=== PATIENT | female | born 1940 | race Caucasian/White ===

== ENCOUNTER → 2016-09-10 | Outpatient (CLI) | payer MEDICARE ==
[~2016-09-10] MED LIST: ASCO-297 PO; BUME1TAB PO; CHOL400T10 PO; FERR1TAB25 PO; FISH1CAP17 PO; FOLI-40 PO; LEFL20TA11 PO; METH2.5T33 PO; PRED-219 PO; [UNRECOGNIZED DRUG - CODE] PO
--- NOTE | 2016-09-10 13:37 | DI ---
Indication: ITS.REASON: R09.89 CAROTID BRUIT; R01.2; R01.1 HEART MURMUR US CAROTID DOPP COMPLETE: TECHNIQUE: Grayscale, color and duplex Doppler imaging was performed of the carotid systems bilaterally. RIGHT: PSV ICA 141 PDV ICA 15 PSV CCA 66 PDV CCA 15 SVR 2.1 PSV ECA 94 ICA Diameter reduction 50%-70% (1.8-2.0)% LEFT: PSV ICA 84 PDV ICA 19 PSV CCA 71 PDV CCA 16 SVR 1.2 PSV ECA 115 ICA Diameter reduction 20%-40% (1.2-1.4 [id number])% The right vertebral artery is patent with cephalic flow. The left vertebral artery is patent with cephalic flow. IMPRESSION:Patient showed mild bilateral plaque in the bulbs extending into the proximal ICAs however, this did not result in significant stenosis or occlusions. Antegrade flow seen in both vertebrals. .
--- NOTE | 2016-09-12 09:32 | ECHOF ---
DATE 09/10/2016 INDICATION Heart murmur. TECHNICAL QUALITY: Technically excellent 2D, M-mode and Doppler echocardiographic images were submitted for interpretation. FINDINGS 1. CARDIAC CHAMBERS. All cardiac chamber measurements are normal. Right ventricle appears somewhat prominent and slightly hypokinetic and there appears to be mild RVH present. 2. LV FUNCTION. Wall thickness is normal. Wall motion analysis there is some interventricular septal stuttering noted. Systolic function is normal. EF of 70%. Mild diastolic dysfunction Grade I/IV, may be normal for age. 3. VALVES. Aortic and mitral valves exhibit moderate sclerosis with some mitral annular calcification and aortic leaflet sclerosis. Valve excursion and closure is normal. Tricuspid valve structure and motion appear normal, normal valve excursion. 4. DOPPLER. Trace regurgitation involving mitral, tricuspid and pulmonic valves. Normal flow velocities throughout. 5. No evidence of pericardial effusion, intracardiac masses or demonstrable shunts. Systolic PA pressure estimated at 42 mmHg, mild pulmonary hypertension. IMPRESSION 1. Normal LV systolic function, EF of 70% with mild diastolic dysfunction, normal for patient's age. 2. Sclerotic valvular disease involving aortic and mitral valves without any significant valvular dysfunction. 3. Mild pulmonary hypertension with mild RVH. MTDD
== END ==
LOC: IMA 11:55
PROVIDERS: ATTEND Family Medicine
DX: R01.1 Cardiac murmur, unspecified (principal); R01.2 Other cardiac sounds; R09.89 Other specified symptoms and signs involving the circulatory and respiratory systems; I27.2 Other secondary pulmonary hypertension; I08.0 Rheumatic disorders of both mitral and aortic valves
CPT/HCPCS: 93306

== ENCOUNTER 2017-06-18 14:56 | Inpatient (IN) ==
[2017-06-18] MEDS ORDERED: ALBUTEROL/IPRATROPIUM 2.5mg-0.5mg/3ml NEB AEROSOL ONE ×2 (15:02→17:26)
--- NOTE | 2017-06-18 15:15 | Emergency Department Report ---
SOB HPI - General Chief Complaint: Shortness of Breath/Dyspnea <José Miguel Bee Q - 07/04/17 14:14 > Stated Complaint: diff breathing <José Miguel Bee Q - 07/04/17 14:14> Time Seen by Provider: 06/18/17 15:14 <José Miguel Bee Q - 07/04/17 14:14> Source: patient <Salome Canela A - 06/18/17 15:15> - History of Present Illness 77-year-old female presents to ED with increasing shortness of air over the past few days. Patient states she is always got a cough that it has become worse over the last 9 days. Cough is productive with clear to whitish sputum, worse at night. Patient states she quit smoking 9 days ago. Denies history of COPD for other lung disease. Admits intermittent fever/chills (however none for several days), rhinorrhea, sinus congestion, decreased appetite, chronic thoracic back pain and chronic swelling of hands/fingers (due to RA). Denies CP, nausea, vomiting. SpO2 87% on RA <CanelaSalome A - 07/03/17 13:33> MD Complaint: shortness of breath <Gloria Canelas A - 06/18/17 15:33> - Related Data Home Medications Medication Instructions Recorded Confirmed Bumetanide Tab [Bumex 1 mg Tab] 1 mg PO DAILY PRN 06/18/17 06/18/17 Hydrocodone/APAP 7.5/325 [Surprise 1 tab PO Q4H PRN 06/18/17 06/18/17 7.5/325] Hydroxychloroquine Sulfate 200 mg PO BIDWM 06/18/17 06/18/17 [Plaquenil] Previous Rx's Medication Instructions Recorded Guaifenesin/Dm [Mucinex Dm] 1 tab PO BID tab 06/26/17 Ipatropium/Albuterol [Combivent 2 puff INH QID #1 inhaler 06/26/17 Respimat Inhaler] LORazepam [Ativan] 0.5 mg PO Q4HR PRN #30 tab 06/26/17 Menthol Cough Drops [Ricola Sf] 1 lozenge MM PRN PRN lozenge 06/26/17 PEG 3350 17gm PACKET [Miralax] 17 gm PO DAILY PRN packet 06/26/17 PredniSONE [Deltasone 10 mg] 30 mg PO BIDWM #70 tab 06/26/17 Promethazine + Cod Liq [Phenergan 5 ml PO Q6HR PRN #150 ml 06/26/17 + Codeine] Senna + Docusate [Senna Plus 1 tab PO BID PRN tab 06/26/17 Tablet] Sodium Chloride [Deep Sea] 2 spray EA NOSTRIL QID PRN spray 06/26/17 <José Miguel Bee Q - 07/04/17 14:14> Allergies Allergy/AdvReac Type Severity Reaction Status Date / Time No Known Allergies Allergy Unknown Verified 06/18/17 16:28 <José Miguel Bee Q - 07/04/17 14:14> Review of Systems All systems: reviewed and negative except as stated <Salome Canela 13:25> Constitutional: Reports: as per HPI, fever, chills <Salome Canela 13:25> Respiratory: Reports: as per HPI, cough, dyspnea <Salome Canela 07/03/17 13:25> PFSH Patient Stated Medical History Bronchitis Yes Pneumonia Yes Gastroesophageal Reflux Yes Disease <José Miguel Bee Q - 07/04/17 14:14> Patient Stated Medical History Bronchitis Yes Pneumonia Yes Gastroesophageal Reflux Yes Disease <Salome Canela 06/18/17 17:05> Surgical History: Hysterectomy. Back <Salome Canela 07/03/17 13:25> Family History: Heart disease <Salome Canela 07/03/17 13:25> - Social History Smoking status: Former smoker <Salome Canela 07/03/17 13:25> Packs per day: 0.5 <Salome Canela 07/03/17 13:25> Packs-years: 40 <Salome Canela 07/03/17 13:25> Physical Exam - Limitations Limitations: no limitations <Salome Canela 06/18/17 15:33> - General General appearance: alert <Salome Canela 06/18/17 15:33> - Normal Exams: Head:: Normocephalic without trauma <Salome Canela 06/18/17 15:33> ENMT:: No facial trauma, nasal exudates, pharyngeal erythema <Salome Canela 06/18/17 15:33> Neck:: Full range of motion, without adenopathy <Salome Canela 06/18/17 15:33> Cardiovascular:: Regular rate and rhythm <Salome Canela 06/18/17 15:33> Abdomen:: Bowel sounds positive, soft, non-tender, non-distended <Salome Canela 07/03/17 13:25> Musculoskeletal:: good range of motion, all extremities <Salome Canela 13:25> Neurological:: Patient is alert, and oriented <Salome Canela 06/18/17 15: 33> Psychiatric:: Patient exhibits, appropriate attention <Salome Canela 15:33> - Eye Eye exam: Present: EOMI <Salome Canela 06/18/17 15:33> - ENT ENT exam: Present: mucous membranes moist <Salome Canela 06/18/17 15:33> - Expanded Respiratory Exam Location: Left: wheezes (expiratory), decreased breath sounds, Right: wheezes, decreased breath sounds, Upper: wheezes, decreased breath sounds, Lower: wheezes , decreased breath sounds <Salome Canela 06/18/17 15:33> Course - Consultations Consultation #1: I discussed patient's HPI, PMH, labs, VS, CXR, exam findings and treatment in the ED with Dr. Love. Dr. Love will admit patient. <Salome Canela 07/03/17 13:33> Vital Signs Temperature 98.0 F 06/18/17 14:58 Pulse Rate 88 06/18/17 14:58 Respiratory Rate 28 H 06/18/17 14:58 Blood Pressure 173/81 H 06/18/17 14:58 Pulse Oximetry 88 L 06/18/17 14:58 Temperature 96.4 F L 06/26/17 07:45 Pulse Rate 70 06/26/17 07:45 Respiratory Rate 16 06/26/17 14:55 Blood Pressure 142/96 H 06/26/17 07:44 Pulse Oximetry 94 06/26/17 14:42 <José Miguel Bee - 07/04/17 14:14> Shortness of Breath/Dyspnea - [facility] Narrative Medical decision making narrative: Labs unremarkable except for sodium of 147 Patient remains hypoxic with continued wheezing and conversation dyspnea after multiple breathing treatments, solu-medrol and ativan. I discussed admission with patient due to hypoxia which patient agree with. <Salome Canela Indy - 07/03/17 13:33> - Differential Diagnosis Likely: acute exacerbation of chronic obstructive airways disease, congestive heart failure, community acquired pneumonia, pulmonary embolism <Gloria Canelajazlyn Putnam - 07/03/17 13:33> - Medical Records Attestation: I reviewed the patient's medical records. <Gloria Canelajazlyn Putnam - 13:33> - Lab Data Attestation: I reviewed the patient's lab results. <Gloria Canelajazlyn Putnam - 13:25> Result diagrams: 06/26/17 04:16 06/26/17 04:16 <José Miguel Bee - 07/04/17 14:14> Lab Results 06/18/17 06/18/17 06/18/17 Range/Units 15:27 15:27 15:28 WBC 9.0 (4.5-11.0) T/MM3 RBC 5.09 (4.00-5.20) M/MM3 Hgb 13.9 (12-16) GM/DL Hct 45.2 (36-46) % MCV 88.8 (80-100) UM3 MCH 27.3 (26-34) UUG MCHC 30.8 L (31-37) GM/DL RDW Std Deviation 43.5 (36.9-50.2) FL Plt Count 313 (130-400) T/MM3 MPV 9.4 (9.4-12.4) UM3 Immature Gran % (Auto) 0.1 (0.0-0.5) % Neut % (Auto) 70.0 H (33-66) % Lymph % (Auto) 20.8 L (23-45) % Burke % (Auto) 7.9 (0-9.0) % Eos % (Auto) 1.0 (0-4) % Baso % (Auto) 0.2 (0-2) % Neut # (Auto) 6.3 (1.8-7.7) T/MM3 Lymph # (Auto) 1.9 (1-4.8) T/MM3 Burke # (Auto) 0.7 (0-0.8) T/MM3 Eos # (Auto) 0.1 (0-0.5) T/MM3 Baso # (Auto) 0.0 (0-0.2) T/MM3 Abs Immat Gran (auto) 0.01 (0.00-0.03) T/MM3 Neutrophils % (Manual) (33-66) % Band Neutrophils % (0-6) % Lymphocytes % (Manual) (23-45) % Monocytes % (Manual) (0-9.0) % Neutrophils # (Manual) (1.8-7.7) T/MM3 Band Neutrophils # T/MM3 Lymphocytes # (Manual) (1-4.8) T/MM3 Monocytes # (Manual) (0-0.8) T/MM3 RBC Morph Comment ABG pH (7.350-7.450) ABG pCO2 (34-45) MMHG ABG pO2 (80-100) MMHG ABG HCO3 (22-26) MEQ/L ABG Total CO2 (23-27) MEQ/L ABG O2 Saturation (95.0-98.0) % ABG Base Excess (-2.0-2.0) MMOL/L O2 Delivery Method FiO2 (liters per min) Turbidity < 20 (0-20) Sodium 147 H (134-144) MEQ/L Potassium 4.0 (3.6-5) MEQ/L Chloride 106 (98-107) MEQ/L Carbon Dioxide 26 (22-30) MEQ/L Anion Gap 15 (5-15) MEQ/L BUN 20.0 H (7-17) MG/DL Creatinine 0.7 (0.7-1.2) MG/DL GFR Calculation 81 BUN/Creatinine Ratio 29 H (6-26) RATIO Glucose 106 (65-110) MG/DL Calculated Osmolality 285 H (261-280) MOSM/KG Calcium 8.8 (8.4-10.2) MG/DL Total Bilirubin 0.30 (0.20-1.30) MG/DL Icterus Index < 2 (0-7) AST 17 (14-36) U/L ALT 28 (9-52) U/L Alkaline Phosphatase 94 (38-126) U/L Troponin I < 0.012 (0-0.12) ng/ml B-Natriuretic Peptide 697 H (0-175) pg/mL Total Protein 7.6 (6.3-8.2) G/DL Albumin 4.5 (3.5-5.0) G/DL Globulin 3.1 (2.4-3.6) G/DL Albumin/Globulin Ratio 1.5 (1.1-2.2) RATIO Vitamin B12 (239-931) PG/ML Specimen Hemolysis < 15 (0-25) Adenovirus (PCR) (Negative) B.parapertussis DNA PCR (Negative) C. pneumoniae DNA (PCR) (Negative) Coronavirus OC43 (PCR) (Negative) Coronavirus HKU1 (PCR) (Negative) Coronavirus 229E (PCR) (Negative) Coronavirus NL63 (PCR) (Negative) Human Metapneumovir PCR (Negative) Influenza Type A (PCR) Negative (Negative) Influenza Type B (PCR) Negative (Negative) M. pneumoniae (PCR) (Negative) Parainfluenza 1 (PCR) (Negative) Parainfluenza 2 (PCR) (Negative) Parainfluenza 3 (PCR) (Negative) Parainfluenza 4 (PCR) (Negative) RSV (PCR) (Negative) Entero/Rhino (PCR) (Negative) 06/18/17 06/19/17 06/19/17 Range/Units 18:38 05:29 05:29 WBC 7.1 (4.5-11.0) T/MM3 RBC 4.70 (4.00-5.20) M/MM3 Hgb 12.9 (12-16) GM/DL Hct 41.2 (36-46) % MCV 87.7 (80-100) UM3 MCH 27.4 (26-34) UUG MCHC 31.3 (31-37) GM/DL RDW Std Deviation 42.1 (36.9-50.2) FL Plt Count 320 (130-400) T/MM3 MPV 9.7 (9.4-12.4) UM3 Immature Gran % (Auto) Not performed (0.0-0.5) % Neut % (Auto) Not performed (33-66) % Lymph % (Auto) Not performed (23-45) % Burke % (Auto) Not performed (0-9.0) % Eos % (Auto) Not performed (0-4) % Baso % (Auto) Not performed (0-2) % Neut # (Auto) Not performed (1.8-7.7) T/MM3 Lymph # (Auto) Not performed (1-4.8) T/MM3 Burke # (Auto) Not performed (0-0.8) T/MM3 Eos # (Auto) Not performed (0-0.5) T/MM3 Baso # (Auto) Not performed (0-0.2) T/MM3 Abs Immat Gran (auto) Not performed (0.00-0.03) T/MM3 Neutrophils % (Manual) 90.0 H (33-66) % Band Neutrophils % 1.0 (0-6) % Lymphocytes % (Manual) 8.0 L (23-45) % Monocytes % (Manual) 1.0 (0-9.0) % Neutrophils # (Manual) 6.4 (1.8-7.7) T/MM3 Band Neutrophils # 0.1 T/MM3 Lymphocytes # (Manual) 0.6 L (1-4.8) T/MM3 Monocytes # (Manual) 0.1 (0-0.8) T/MM3 RBC Morph Comment Normal ABG pH (7.350-7.450) ABG pCO2 (34-45) MMHG ABG pO2 (80-100) MMHG ABG HCO3 (22-26) MEQ/L ABG Total CO2 (23-27) MEQ/L ABG O2 Saturation (95.0-98.0) % ABG Base Excess (-2.0-2.0) MMOL/L O2 Delivery Method FiO2 (liters per min) Turbidity < 20 (0-20) Sodium 144 (134-144) MEQ/L Potassium 4.2 (3.6-5) MEQ/L Chloride 108 H (98-107) MEQ/L Carbon Dioxide 23 (22-30) MEQ/L Anion Gap 13 (5-15) MEQ/L BUN 17.0 (7-17) MG/DL Creatinine 0.6 L (0.7-1.2) MG/DL GFR Calculation 97 BUN/Creatinine Ratio 28 H (6-26) RATIO Glucose 157 H (65-110) MG/DL Calculated Osmolality 282 H (261-280) MOSM/KG Calcium 8.8 (8.4-10.2) MG/DL Total Bilirubin (0.20-1.30) MG/DL Icterus Index < 2 (0-7) AST (14-36) U/L ALT (9-52) U/L Alkaline Phosphatase (38-126) U/L Troponin I (0-0.12) ng/ml B-Natriuretic Peptide (0-175) pg/mL Total Protein (6.3-8.2) G/DL Albumin (3.5-5.0) G/DL Globulin (2.4-3.6) G/DL Albumin/Globulin Ratio (1.1-2.2) RATIO Vitamin B12 (239-931) PG/ML Specimen Hemolysis < 15 (0-25) Adenovirus (PCR) Negative (Negative) B.parapertussis DNA PCR Negative (Negative) C. pneumoniae DNA (PCR) Negative (Negative) Coronavirus OC43 (PCR) Negative (Negative) Coronavirus HKU1 (PCR) Negative (Negative) Coronavirus 229E (PCR) Negative (Negative) Coronavirus NL63 (PCR) Negative (Negative) Human Metapneumovir PCR Negative (Negative) Influenza Type A (PCR) Negative (Negative) Influenza Type B (PCR) Negative (Negative) M. pneumoniae (PCR) Negative (Negative) Parainfluenza 1 (PCR) Negative (Negative) Parainfluenza 2 (PCR) Negative (Negative) Parainfluenza 3 (PCR) Negative (Negative) Parainfluenza 4 (PCR) Negative (Negative) RSV (PCR) Negative (Negative) Entero/Rhino (PCR) Negative (Negative) 06/19/17 06/19/17 Range/Units 05:29 13:30 WBC (4.5-11.0) T/MM3 RBC (4.00-5.20) M/MM3 Hgb (12-16) GM/DL Hct (36-46) % MCV (80-100) UM3 MCH (26-34) UUG MCHC (31-37) GM/DL RDW Std Deviation (36.9-50.2) FL Plt Count (130-400) T/MM3 MPV (9.4-12.4) UM3 Immature Gran % (Auto) (0.0-0.5) % Neut % (Auto) (33-66) % Lymph % (Auto) (23-45) % Burke % (Auto) (0-9.0) % Eos % (Auto) (0-4) % Baso % (Auto) (0-2) % Neut # (Auto) (1.8-7.7) T/MM3 Lymph # (Auto) (1-4.8) T/MM3 Burke # (Auto) (0-0.8) T/MM3 Eos # (Auto) (0-0.5) T/MM3 Baso # (Auto) (0-0.2) T/MM3 Abs Immat Gran (auto) (0.00-0.03) T/MM3 Neutrophils % (Manual) (33-66) % Band Neutrophils % (0-6) % Lymphocytes % (Manual) (23-45) % Monocytes % (Manual) (0-9.0) % Neutrophils # (Manual) (1.8-7.7) T/MM3 Band Neutrophils # T/MM3 Lymphocytes # (Manual) (1-4.8) T/MM3 Monocytes # (Manual) (0-0.8) T/MM3 RBC Morph Comment ABG pH 7.410 (7.350-7.450) ABG pCO2 37 (34-45) MMHG ABG pO2 59 L (80-100) MMHG ABG HCO3 23.0 (22-26) MEQ/L ABG Total CO2 24.0 (23-27) MEQ/L ABG O2 Saturation 91.0 L (95.0-98.0) % ABG Base Excess -1.0 (-2.0-2.0) MMOL/L O2 Delivery Method Nasal cannula, liter FiO2 (liters per min) 2 Turbidity (0-20) Sodium (134-144) MEQ/L Potassium (3.6-5) MEQ/L Chloride (98-107) MEQ/L Carbon Dioxide (22-30) MEQ/L Anion Gap (5-15) MEQ/L BUN (7-17) MG/DL Creatinine (0.7-1.2) MG/DL GFR Calculation BUN/Creatinine Ratio (6-26) RATIO Glucose (65-110) MG/DL Calculated Osmolality (261-280) MOSM/KG Calcium (8.4-10.2) MG/DL Total Bilirubin (0.20-1.30) MG/DL Icterus Index (0-7) AST (14-36) U/L ALT (9-52) U/L Alkaline Phosphatase (38-126) U/L Troponin I (0-0.12) ng/ml B-Natriuretic Peptide (0-175) pg/mL Total Protein (6.3-8.2) G/DL Albumin (3.5-5.0) G/DL Globulin (2.4-3.6) G/DL Albumin/Globulin Ratio (1.1-2.2) RATIO Vitamin B12 666 (239-931) PG/ML Specimen Hemolysis (0-25) Adenovirus (PCR) (Negative) B.parapertussis DNA PCR (Negative) C. pneumoniae DNA (PCR) (Negative) Coronavirus OC43 (PCR) (Negative) Coronavirus HKU1 (PCR) (Negative) Coronavirus 229E (PCR) (Negative) Coronavirus NL63 (PCR) (Negative) Human Metapneumovir PCR (Negative) Influenza Type A (PCR) (Negative) Influenza Type B (PCR) (Negative) M. pneumoniae (PCR) (Negative) Parainfluenza 1 (PCR) (Negative) Parainfluenza 2 (PCR) (Negative) Parainfluenza 3 (PCR) (Negative) Parainfluenza 4 (PCR) (Negative) RSV (PCR) (Negative) Entero/Rhino (PCR) (Negative) <José Miguel Bee Q - 07/04/17 14:14> Lab Results 06/18/17 06/18/17 06/18/17 Range/Units 15:27 15:27 15:28 WBC 9.0 (4.5-11.0) T/MM3 RBC 5.09 (4.00-5.20) M/MM3 Hgb 13.9 (12-16) GM/DL Hct 45.2 (36-46) % MCV 88.8 (80-100) UM3 MCH 27.3 (26-34) UUG MCHC 30.8 L (31-37) GM/DL RDW Std Deviation 43.5 (36.9-50.2) FL Plt Count 313 (130-400) T/MM3 MPV 9.4 (9.4-12.4) UM3 Immature Gran % (Auto) 0.1 (0.0-0.5) % Neut % (Auto) 70.0 H (33-66) % Lymph % (Auto) 20.8 L (23-45) % Burke % (Auto) 7.9 (0-9.0) % Eos % (Auto) 1.0 (0-4) % Baso % (Auto) 0.2 (0-2) % Neut # (Auto) 6.3 (1.8-7.7) T/MM3 Lymph # (Auto) 1.9 (1-4.8) T/MM3 Burke # (Auto) 0.7 (0-0.8) T/MM3 Eos # (Auto) 0.1 (0-0.5) T/MM3 Baso # (Auto) 0.0 (0-0.2) T/MM3 Abs Immat Gran (auto) 0.01 (0.00-0.03) T/MM3 Neutrophils % (Manual) (33-66) % Band Neutrophils % (0-6) % Lymphocytes % (Manual) (23-45) % Monocytes % (Manual) (0-9.0) % Neutrophils # (Manual) (1.8-7.7) T/MM3 Band Neutrophils # T/MM3 Lymphocytes # (Manual) (1-4.8) T/MM3 Monocytes # (Manual) (0-0.8) T/MM3 RBC Morph Comment ABG pH (7.350-7.450) ABG pCO2 (34-45) MMHG ABG pO2 (80-100) MMHG ABG HCO3 (22-26) MEQ/L ABG Total CO2 (23-27) MEQ/L ABG O2 Saturation (95.0-98.0) % ABG Base Excess (-2.0-2.0) MMOL/L O2 Delivery Method FiO2 (liters per min) Turbidity < 20 (0-20) Sodium 147 H (134-144) MEQ/L Potassium 4.0 (3.6-5) MEQ/L Chloride 106 (98-107) MEQ/L Carbon Dioxide 26 (22-30) MEQ/L Anion Gap 15 (5-15) MEQ/L BUN 20.0 H (7-17) MG/DL Creatinine 0.7 (0.7-1.2) MG/DL GFR Calculation 81 BUN/Creatinine Ratio 29 H (6-26) RATIO Glucose 106 (65-110) MG/DL Calculated Osmolality 285 H (261-280) MOSM/KG Calcium 8.8 (8.4-10.2) MG/DL Total Bilirubin 0.30 (0.20-1.30) MG/DL Icterus Index < 2 (0-7) AST 17 (14-36) U/L ALT 28 (9-52) U/L Alkaline Phosphatase 94 (38-126) U/L Troponin I < 0.012 (0-0.12) ng/ml B-Natriuretic Peptide 697 H (0-175) pg/mL Total Protein 7.6 (6.3-8.2) G/DL Albumin 4.5 (3.5-5.0) G/DL Globulin 3.1 (2.4-3.6) G/DL Albumin/Globulin Ratio 1.5 (1.1-2.2) RATIO Vitamin B12 (239-931) PG/ML Specimen Hemolysis < 15 (0-25) Adenovirus (PCR) (Negative) B.parapertussis DNA PCR (Negative) C. pneumoniae DNA (PCR) (Negative) Coronavirus OC43 (PCR) (Negative) Coronavirus HKU1 (PCR) (Negative) Coronavirus 229E (PCR) (Negative) Coronavirus NL63 (PCR) (Negative) Human Metapneumovir PCR (Negative) Influenza Type A (PCR) Negative (Negative) Influenza Type B (PCR) Negative (Negative) M. pneumoniae (PCR) (Negative) Parainfluenza 1 (PCR) (Negative) Parainfluenza 2 (PCR) (Negative) Parainfluenza 3 (PCR) (Negative) Parainfluenza 4 (PCR) (Negative) RSV (PCR) (Negative) Entero/Rhino (PCR) (Negative) 06/18/17 06/19/17 06/19/17 Range/Units 18:38 05:29 05:29 WBC 7.1 (4.5-11.0) T/MM3 RBC 4.70 (4.00-5.20) M/MM3 Hgb 12.9 (12-16) GM/DL Hct 41.2 (36-46) % MCV 87.7 (80-100) UM3 MCH 27.4 (26-34) UUG MCHC 31.3 (31-37) GM/DL RDW Std Deviation 42.1 (36.9-50.2) FL Plt Count 320 (130-400) T/MM3 MPV 9.7 (9.4-12.4) UM3 Immature Gran % (Auto) Not performed (0.0-0.5) % Neut % (Auto) Not performed (33-66) % Lymph % (Auto) Not performed (23-45) % Burke % (Auto) Not performed (0-9.0) % Eos % (Auto) Not performed (0-4) % Baso % (Auto) Not performed (0-2) % Neut # (Auto) Not performed (1.8-7.7) T/MM3 Lymph # (Auto) Not performed (1-4.8) T/MM3 Burke # (Auto) Not performed (0-0.8) T/MM3 Eos # (Auto) Not performed (0-0.5) T/MM3 Baso # (Auto) Not performed (0-0.2) T/MM3 Abs Immat Gran (auto) Not performed (0.00-0.03) T/MM3 Neutrophils % (Manual) 90.0 H (33-66) % Band Neutrophils % 1.0 (0-6) % Lymphocytes % (Manual) 8.0 L (23-45) % Monocytes % (Manual) 1.0 (0-9.0) % Neutrophils # (Manual) 6.4 (1.8-7.7) T/MM3 Band Neutrophils # 0.1 T/MM3 Lymphocytes # (Manual) 0.6 L (1-4.8) T/MM3 Monocytes # (Manual) 0.1 (0-0.8) T/MM3 RBC Morph Comment Normal ABG pH (7.350-7.450) ABG pCO2 (34-45) MMHG ABG pO2 (80-100) MMHG ABG HCO3 (22-26) MEQ/L ABG Total CO2 (23-27) MEQ/L ABG O2 Saturation (95.0-98.0) % ABG Base Excess (-2.0-2.0) MMOL/L O2 Delivery Method FiO2 (liters per min) Turbidity < 20 (0-20) Sodium 144 (134-144) MEQ/L Potassium 4.2 (3.6-5) MEQ/L Chloride 108 H (98-107) MEQ/L Carbon Dioxide 23 (22-30) MEQ/L Anion Gap 13 (5-15) MEQ/L BUN 17.0 (7-17) MG/DL Creatinine 0.6 L (0.7-1.2) MG/DL GFR Calculation 97 BUN/Creatinine Ratio 28 H (6-26) RATIO Glucose 157 H (65-110) MG/DL Calculated Osmolality 282 H (261-280) MOSM/KG Calcium 8.8 (8.4-10.2) MG/DL Total Bilirubin (0.20-1.30) MG/DL Icterus Index < 2 (0-7) AST (14-36) U/L ALT (9-52) U/L Alkaline Phosphatase (38-126) U/L Troponin I (0-0.12) ng/ml B-Natriuretic Peptide (0-175) pg/mL Total Protein (6.3-8.2) G/DL Albumin (3.5-5.0) G/DL Globulin (2.4-3.6) G/DL Albumin/Globulin Ratio (1.1-2.2) RATIO Vitamin B12 (239-931) PG/ML Specimen Hemolysis < 15 (0-25) Adenovirus (PCR) Negative (Negative) B.parapertussis DNA PCR Negative (Negative) C. pneumoniae DNA (PCR) Negative (Negative) Coronavirus OC43 (PCR) Negative (Negative) Coronavirus HKU1 (PCR) Negative (Negative) Coronavirus 229E (PCR) Negative (Negative) Coronavirus NL63 (PCR) Negative (Negative) Human Metapneumovir PCR Negative (Negative) Influenza Type A (PCR) Negative (Negative) Influenza Type B (PCR) Negative (Negative) M. pneumoniae (PCR) Negative (Negative) Parainfluenza 1 (PCR) Negative (Negative) Parainfluenza 2 (PCR) Negative (Negative) Parainfluenza 3 (PCR) Negative (Negative) Parainfluenza 4 (PCR) Negative (Negative) RSV (PCR) Negative (Negative) Entero/Rhino (PCR) Negative (Negative) 06/19/17 06/19/17 Range/Units 05:29 13:30 WBC (4.5-11.0) T/MM3 RBC (4.00-5.20) M/MM3 Hgb (12-16) GM/DL Hct (36-46) % MCV (80-100) UM3 MCH (26-34) UUG MCHC (31-37) GM/DL RDW Std Deviation (36.9-50.2) FL Plt Count (130-400) T/MM3 MPV (9.4-12.4) UM3 Immature Gran % (Auto) (0.0-0.5) % Neut % (Auto) (33-66) % Lymph % (Auto) (23-45) % Burke % (Auto) (0-9.0) % Eos % (Auto) (0-4) % Baso % (Auto) (0-2) % Neut # (Auto) (1.8-7.7) T/MM3 Lymph # (Auto) (1-4.8) T/MM3 Burke # (Auto) (0-0.8) T/MM3 Eos # (Auto) (0-0.5) T/MM3 Baso # (Auto) (0-0.2) T/MM3 Abs Immat Gran (auto) (0.00-0.03) T/MM3 Neutrophils % (Manual) (33-66) % Band Neutrophils % (0-6) % Lymphocytes % (Manual) (23-45) % Monocytes % (Manual) (0-9.0) % Neutrophils # (Manual) (1.8-7.7) T/MM3 Band Neutrophils # T/MM3 Lymphocytes # (Manual) (1-4.8) T/MM3 Monocytes # (Manual) (0-0.8) T/MM3 RBC Morph Comment ABG pH 7.410 (7.350-7.450) ABG pCO2 37 (34-45) MMHG ABG pO2 59 L (80-100) MMHG ABG HCO3 23.0 (22-26) MEQ/L ABG Total CO2 24.0 (23-27) MEQ/L ABG O2 Saturation 91.0 L (95.0-98.0) % ABG Base Excess -1.0 (-2.0-2.0) MMOL/L O2 Delivery Method Nasal cannula, liter FiO2 (liters per min) 2 Turbidity (0-20) Sodium (134-144) MEQ/L Potassium (3.6-5) MEQ/L Chloride (98-107) MEQ/L Carbon Dioxide (22-30) MEQ/L Anion Gap (5-15) MEQ/L BUN (7-17) MG/DL Creatinine (0.7-1.2) MG/DL GFR Calculation BUN/Creatinine Ratio (6-26) RATIO Glucose (65-110) MG/DL Calculated Osmolality (261-280) MOSM/KG Calcium (8.4-10.2) MG/DL Total Bilirubin (0.20-1.30) MG/DL Icterus Index (0-7) AST (14-36) U/L ALT (9-52) U/L Alkaline Phosphatase (38-126) U/L Troponin I (0-0.12) ng/ml B-Natriuretic Peptide (0-175) pg/mL Total Protein (6.3-8.2) G/DL Albumin (3.5-5.0) G/DL Globulin (2.4-3.6) G/DL Albumin/Globulin Ratio (1.1-2.2) RATIO Vitamin B12 666 (239-931) PG/ML Specimen Hemolysis (0-25) Adenovirus (PCR) (Negative) B.parapertussis DNA PCR (Negative) C. pneumoniae DNA (PCR) (Negative) Coronavirus OC43 (PCR) (Negative) Coronavirus HKU1 (PCR) (Negative) Coronavirus 229E (PCR) (Negative) Coronavirus NL63 (PCR) (Negative) Human Metapneumovir PCR (Negative) Influenza Type A (PCR) (Negative) Influenza Type B (PCR) (Negative) M. pneumoniae (PCR) (Negative) Parainfluenza 1 (PCR) (Negative) Parainfluenza 2 (PCR) (Negative) Parainfluenza 3 (PCR) (Negative) Parainfluenza 4 (PCR) (Negative) RSV (PCR) (Negative) Entero/Rhino (PCR) (Negative) <Salome Canela - 06/18/17 15:21> - Radiology Data Attestation: I reviewed the patient's radiology results. <Salome Canela - 07/03/17 13:25> CXR: Impression: 1. Suspicious right upper lobe pulmonary nodule raising concern for primary lung malignancy. Recommend chest CT for further evaluation. 2. Emphysema without focal pneumonia. Findings were discussed with Dr. Bee in the emergency department at 1622 on June 18, 2017. . <Salome Canela A - 07/03/17 13:25> - EKG Data EKG #1 EKG attestation: Yes: I reviewed and interpreted this EKG. <Chi Been Q - 07/04/17 14:14> EKG shows normal: sinus rhythm <Chi Been Q - 07/04/17 14:14> Rate: normal <Chi Been Q - 07/04/17 14:14> Rhythm: NSR <José Miguel Bee Q - 07/04/17 14:14> [place]/QRS: normal <Chi Been Q - 07/04/17 14:14> Interpretation: no acute changes <Chi Been Q - 07/04/17 14:14> Disposition Clinical Impression: COPD exacerbation <Chi Been Q - 07/04/17 14:14> Disposition: 02 To [facility] [place] <Chi Been Q - 07/04/17 14:14> Condition: Stable <José Miguel Bee Q - 07/04/17 14:14> Instructions: <José Miguel Bee Q - 07/04/17 14:14> Prescriptions: [place]ifenesin/Dm [Mucinex Dm] 1 tab PO BID tab LORazepam [Ativan] 0.5 mg PO Q4HR PRN #30 tab PRN Reason: Anxiety/Air Hunger/Agitation Menthol Cough Drops [Ricola Sf] 1 lozenge MM PRN PRN lozenge PRN Reason: Cough PredniSONE [Deltasone 10 mg] 30 mg PO BIDWM #70 tab Promethazine + Cod Liq [Phenergan + Codeine] 5 ml PO Q6HR PRN #150 ml PRN Reason: Cough Senna + Docusate [Senna Plus Tablet] 1 tab PO BID PRN tab PRN Reason: Constipation Sodium Chloride [[place]] 2 spray EA NOSTRIL QID PRN spray PRN Reason: Nasal Congestion Ipatropium/Albuterol [Combivent Respimat Inhaler] 2 puff INH QID #1 inhaler PEG 3350 17gm PACKET [Miralax] 17 gm PO DAILY PRN packet PRN Reason: Constipation Continue Hydrocodone/APAP 7.5/325 [[place] 7.5/325] 1 tab PO Q4H PRN PRN Reason: Pain Bumetanide Tab [Bumex 1 mg Tab] 1 mg PO DAILY PRN PRN Reason: Prn Orders Hydroxychloroquine Sulfate [Plaquenil] 200 mg PO BIDWM <José Miguel Bee Q - 07/04/17 14:14> Referrals: Moe Baeza II, MD [Primary Care Provider] - <José Miguel Bee Q - 07/04/17 14:14> Forms: <José Miguel Bee Q - 07/04/17 14:14> - Seen By: midlevel <Salome Canela - 06/18/17 15:21>
--- OUTSIDE RECORDS SUMMARY | 2017-06-18 15:19 | External Medical Summary | Continuity of Care Document ---
:1940 Author Organization [facility] Allergies There is no data. Medications There is no data. Problems There is no data. Procedures There is no data. Results There is no data. Encounters ACCT Visit Discharge Status Pt. Type Provider Facility Loc./Unit Complaint No. Date/Time [id number] 01/31/2012 01/31/2012 DIS Outpatient Roddy VillalbaMO [id number] 12:00:00 12:00:00 , [facility]
[2017-06-18] MEDS ORDERED: METHYLPREDNISOLONE SOD SUCC 125mg/2ml INJECTION IVP ONE (15:30)
[2017-06-18] MEDS: SALINE FLUSH 10ml SYRINGE IVF PRN (15:38)
--- NOTE | 2017-06-18 16:28 | XRay Report ---
INDICATION: cough, SOA PROCEDURE: CHEST 2-VIEWS UPRIGHT (PA & LAT) Encounter: Initial COMPARISON: None FINDINGS: There is an irregular 2.1 cm right upper lobe pulmonary nodule projecting between the second and third. Ribs lungs are hyperinflated with flattening of the hemidiaphragms and changes of emphysema. No consolidative pneumonia, pleural effusion or pneumothorax. Heart size and mediastinal contours are within normal limits. Pulmonary vascularity is normal. Prior mid thoracic vertebroplasty. Impression: 1. Suspicious right upper lobe pulmonary nodule raising concern for primary lung malignancy. Recommend chest CT for further evaluation. 2. Emphysema without focal pneumonia. Findings were discussed with Dr. Bee in the emergency department at 1622 on June 18, 2017. .
[2017-06-18] MEDS ORDERED: BISACODYL 10 MG SUPPOSITORY RECTALLY PRN (18:19)
[2017-06-18] MEDS ORDERED: PROMETHAZINE/CODEINE ORAL LIQUID 5ml PO PRN (18:19)
[2017-06-18] MEDS ORDERED: MORPHINE SULFATE 2mg INJECTION IVP PRN (18:19)
[2017-06-18] MEDS ORDERED: ONDANSETRON 4 MG/2 ML INJECTION IVP PRN (18:19)
[2017-06-18] MEDS ORDERED: ALBUTEROL/IPRATROPIUM 2.5mg-0.5mg/3ml NEB AEROSOL PRN (18:19)
[2017-06-18] MEDS ORDERED: MENTHOL COUGH DROPS (RICOLA) MM PRN (18:19)
[2017-06-18] MEDS: 1/2 NS 1,000 ML IV SCH (18:30)
[2017-06-18] MEDS: HYDROXYCHLOROQUINE 200 MG PO SCH (18:30)
--- NOTE | 2017-06-18 18:36 | History & Physical Report ---
History of Present Illness Date: 06/18/17 Chief complaint: difficulty HPI: Abida Montelongo is a 77 y/o woman who has been struggling with SOA and cough x2 weeks, worse at night. She's had fever and chills, mild sweats. She's had headache and "eye floaters". She notes chronic thoracic back pain but not other myalgias per se. She has had some alternating diarrhea/constipation. Her feet and legs, arms and hands have been swollen, which she thinks is from RA -- this worsens when she works her joints too hard. She occ feels dizzy, and she's been weak recently. She hasn't had much of an appetite - mostly b/c she's short of breath. She presented to [facility] ED on 06/18/17. Room air sats were 87% on room air and she was placed on oxygen. Labs showed hypernatremia (147) but otherwise were stable. Trop was neg. EKG: sinus. CXR showed COPD changes and a right upper lobe nodule which the patient and spouse, Simba, state is chronic and was worked up 4-5 years ago at [facility]. Despite multiple breathing treatments, solu -medrol, and ativan, she continued to wheeze and have conversational dyspnea. [facility]. Review of Systems All systems PM: 10-point ROS was reviewed, no additional remarkable complaints except - Constitutional Constitutional: Present: chills, fever(s), headache(s) - EENMT Eyes: Present: as per HPI Nose: Absent: obstruction Mouth/Throat: Absent: sore throat - Cardiovascular Cardiovascular: Absent: chest pain Vascular: Present: pedal edema - Respiratory Respiratory: Present: as per HPI - Gastrointestinal Gastrointestinal: Present: as per HPI - Genitourinary Genitourinary: Absent: dysuria - Musculoskeletal Musculoskeletal: Present: back pain - Integumentary/Breasts Integumentary: Absent: rash, wounds - Neurological Neurological: Present: as per HPI - Psychiatric Psychiatric: Absent: anxiety, depression - Hematologic/Lymphatic Hematologic/Lymphatic: Absent: easy bleeding, easy bruising - Allergic/Immunologic Allergic/Immunologic: Absent: seasonal rhinorrhea Past Medical History RA GERD Chronic back pain Mild diastolic dysfunction, preserved EF Mild pulmonary HTN Surgical History: Back surgery. Hysterectomy Family History Updates: She never knew her father. Her mother in her mid- 60s, reportedly of a heart attack but she was a heavy smoker. 2 half- sisters overdosed on illegal drugs. Half brother still living. 5 children - daughter had open heart surgery. - Social History Smoking status: Former smoker (quit 9 days ago; smoked 0.4-mwr-hehats ppd since high school) Packs per day: 0.5 Packs-years: 40 Substance use type: does not use Alcohol intake frequency: does not drink Household members: spouse Medications Home Medications Medication Instructions Recorded Confirmed Type Bumetanide Tab [Bumex 1 mg Tab] 1 mg PO DAILY PRN 06/18/17 06/18/17 History Hydrocodone/APAP 7.5/325 [[place] 1 tab PO Q4H PRN 06/18/17 06/18/17 History 7.5/325] Hydroxychloroquine Sulfate 200 mg PO BIDWM 06/18/17 06/18/17 History [Plaquenil] Allergies Allergy/AdvReac Type Severity Reaction Status Date / Time No Known Allergies Allergy Unknown Verified 06/18/17 16:28 Exam Vital Signs: Temperature 98.0 F 06/18/17 14:58 Pulse Rate 101 H 06/18/17 17:30 Respiratory Rate 26 H 06/18/17 17:36 Blood Pressure 168/74 H 06/18/17 17:30 Pulse Oximetry 93 06/18/17 17:36 Height/Weight/BMI: Height 1.6 m Weight 60 kg Body Mass Index 23.4 - Constitutional Present: mild distress, well nourished, well developed Comments: conversational dyspnea - 3-4 words at a time - Routine HEENT Exam Head: Present: normocephalic Eye: Present: PERRL. Absent: conjunctival icterus, scleral injection ENT: Present: mucous membranes dry Comments: tongue is dry and beefy red - Routine Neck Exam Present: supple - Routine Respiratory Exam Present: dyspnea, decreased breath sounds, prolonged expiratory phase, wheezes, diminished air movement - Routine Cardiovascular Exam Present: RRR, S1, S2 - Routine Abdominal Exam Present: soft, normoactive bowel sounds, non distended, non tender - Routine Extremities Exam Present: no edema, pulses intact - Routine Back/Spine/Pelvis Exam Back/Spine: Present: full ROM - Routine Skin Exam Present: intact, dry, warm - Routine Neurological Exam Present: alert, oriented X3, CN II-XII intact, normal speech - Routine Psychiatric Exam Present: normal affect, normal thought process, cooperative Results - Labs CBC & Chem 7: 06/18/17 15:27 06/18/17 15:27 Assessment and Plan (1) COPD exacerbation Current visit: Yes Status: Acute Assessment and Plan: IMPRESSION COPD (suspected) exacerbation Acute hypoxic respiratory insufficiency Lung nodule, chronic Hypernatremia (POA) Mild diastolic dysfunction, preserved EF Mild pulmonary HTN RA GERD Chronic back pain Tobacco dependency PLAN Admit, obs status, under the hosp service. Check respiratory panel. Significant smoking hx; quit approx 9 days ago. Suspect COPD and will treat wheezing as exacerbation of COPD with DuoNeb, Pulmicort, Solu-Medrol 125 Q6h, and Ativan PRN air hunger. Consider consulting Dr. Foster. Hypernatremia - 1/2 NS. Recheck in am. Hold Bumex for now. Request records from [facility] regarding w/u for lung nodule, which pt/spouse ( Simba) report is chronic. Check B12 d/t reddened tongue. Consult PT/OT - RN reports gait is unsteady. Code status: DNR. Ivan Assessment as above with: Thrush, anorexia, anxiety secondary to hypoxia DVT Prophylaxis: SCD's Resuscitation Status: Do Not Resuscitate - Physician Narrative Physician: Candido Love MD Narrative: Date: 06/18/17 Time: 2129 Have independently interviewed and examined pt. Chart reviewed. Case discussed with ED provider and my LOSS PREVENTION SPECIALIST. Care plan developed with my supervision; agree with above. ROUGH for the past 9 days. Increasing cough and congestion. Working harder to breath. Not able to eat due to SOA and decreased appetite. Mouth more sore and dry. Increased nasal congestion. Progressively more tired and weak. Lungs: decreased, tight and congested. Little air movement. Conversational dyspnea despite O2. CV: regular AB: soft nt/nd MSE: awake alert Plan: Initiate OBS for COPD exacerbation. Supplement O2 to help saturations. Neb Treatment. IV Solu-Medrol. Mucinex DM BID, with Ricola and Phenergan with Codeine prn cough. Lorazepam and MS to help anxiety from air hunger. Mycelex yuliya for thrush; may have swizzle to decrease stomatitis. RT for tobacco cessation. DNR as per her requests. Hospital Course Summary Disclaimer: The visit summary below is not to be considered part of the above Progress Note. Hospital Course: 06/18/17 Admit, OBS status, under the hospitalist service. Check respiratory panel. Significant smoking hx; quit approx 9 days ago. Suspect COPD and will treat wheezing as exacerbation of COPD with DuoNeb, Pulmicort, Solu-Medrol 125 Q6h, and Ativan/MS PRN air hunger. Consider consulting Dr. Foster. Hypernatremia - 1/2 NS. Recheck in am. Hold Bumex for now. Request records from [facility] regarding w/u for lung nodule, which pt/spouse ( Simba) report is chronic. Check B12 d/t reddened tongue. Do suspect thrush - start Mycelex and have Swizzle prn stomatitis pain. Consult PT/OT - RN reports gait is unsteady. Code status: DNR.
[2017-06-18] MEDS: ALBUTEROL/IPRATROPIUM 2.5mg-0.5mg/3ml NEB AEROSOL SCH (20:25)
[2017-06-18] MEDS: BUDESONIDE INH.SOLN 0.5mg/2ml NEB AEROSOL SCH (20:25)
[2017-06-18] MEDS: GUAIFENESIN/D-METHORPHAN 600mg/30mg TABLET PO SCH (20:36)
[2017-06-18] MEDS: METHYLPREDNISOLONE SOD SUCC 125mg/2ml INJECTION IVP SCH (21:03)
[2017-06-18] MEDS: CLOTRIMAZOLE 10 MG TROCHE MM SCH (21:48)
[2017-06-18] MEDS: SALINE 0.65% NASAL SPRAY 44 ML BOTTLE EA NOSTRIL SCH (21:48)
[2017-06-19] MEDS: METHYLPREDNISOLONE SOD SUCC 125mg/2ml INJECTION IVP SCH ×4 (02:59→21:38)
[2017-06-19] MEDS: 1/2 NS 1,000 ML IV SCH ×2 (04:34→14:40)
[2017-06-19] MEDS: ALBUTEROL/IPRATROPIUM 2.5mg-0.5mg/3ml NEB AEROSOL SCH ×5 (08:00→22:41)
[2017-06-19] MEDS: BUDESONIDE INH.SOLN 0.5mg/2ml NEB AEROSOL SCH ×2 (08:00→19:17)
[2017-06-19] MEDS: HYDROCODONE/APAP 7.5 MG/325 MG TABLET PO PRN ×3 (09:12→21:36)
[2017-06-19] MEDS: GUAIFENESIN/D-METHORPHAN 600mg/30mg TABLET PO SCH ×2 (09:12→21:36)
[2017-06-19] MEDS: HYDROXYCHLOROQUINE 200 MG PO SCH ×4 (09:13→09:21)
[2017-06-19] MEDS: CLOTRIMAZOLE 10 MG TROCHE MM SCH ×5 (09:13→21:37)
[2017-06-19] MEDS: SALINE 0.65% NASAL SPRAY 44 ML BOTTLE EA NOSTRIL SCH ×4 (09:13→23:19)
[2017-06-19] MEDS: SALINE FLUSH 10ml SYRINGE IVF PRN ×3 (11:12→21:38)
--- NOTE | 2017-06-19 12:50 | Pulmonology Consult Note ---
<RutMarzena D - Last Filed: 06/19/17 17:47> History of Present Illness Consult date: 06/19/17 Requesting physician: Candido Love Reason for consult: dyspnea, cough Chief complaint: SOB History of present illness: This is a 77 yo female who states she has been having SOB for the past couple weeks with increased cough and sputum with fever and chills, mild sweats. States she has previously been seen by Dr. Pereyra for a RUL lung nodule. Her states the nodule was followed for at least 3-4 yrs with no changes. She presented to [facility] ED on 06/18/17 due to her SOB, Ra sats were 87% and she was placed on oxygen, BT's and solumedrol. CXR on admit shows COPD changes and RUL nodule. We have been consulted for her respiratory issues and appreciate the consult. Review of Systems - Constitutional Constitutional: Present: chills, fatigue, weakness - EENT Eyes: Absent: blurry vision, change in vision Nose: Absent: change in smell, pain Mouth/Throat: Present: mucosa moist - Cardiovascular Cardiovascular: Present: dyspnea on exertion. Absent: chest pain, palpitations , syncope - Respiratory Respiratory: Present: cough, dyspnea, dyspnea on exertion, wheezing, chest congestion - Gastrointestinal Gastrointestinal: Absent: abdominal pain, change in bowel habits - Musculoskeletal Musculoskeletal: Absent: abnormal gait, arthralgias, atrophy - Neurological Neurological: Absent: abnormal gait, abnormal movements, abnormal speech - Psychiatric Psychiatric: Present: anxiety. Absent: abnormal sleep pattern, anhedonia - Endocrine Endocrine: Absent: cold intolerance, excessive sweating - Hematologic/Lymphatic Hematologic/Lymphatic: Absent: easy bleeding, easy bruising - Allergic/Immunologic Allergic/Immunologic: Absent: tongue swelling, throat swelling [facility] Patient Stated Medical History Bronchitis Yes Pneumonia Yes Gastroesophageal Reflux Yes Disease Surgical History: Back surgery. Hysterectomy - Social History Smoking status: Former smoker Housing: house Household members: significant other Current residence: Apartment/Private Home Medications Home Medications Medication Instructions Recorded Confirmed Type Bumetanide Tab [Bumex 1 mg Tab] 1 mg PO DAILY PRN 06/18/17 06/18/17 History Hydrocodone/APAP 7.5/325 [[place] 1 tab PO Q4H PRN 06/18/17 06/18/17 History 7.5/325] Hydroxychloroquine Sulfate 200 mg PO BIDWM 06/18/17 06/18/17 History [Plaquenil] Allergies Allergy/AdvReac Type Severity Reaction Status Date / Time No Known Allergies Allergy Unknown Verified 06/18/17 16:28 Exam Vital signs: Temperature 97.2 F 06/19/17 07:47 Pulse Rate 101 H 06/19/17 08:36 Respiratory Rate 24 06/19/17 11:55 Blood Pressure 145/85 H 06/19/17 08:53 Pulse Oximetry 94 06/19/17 12:03 - Constitutional moderate distress, thin, cooperative - Routine HEENT Exam Head: Present: normocephalic, atraumatic Eye: Present: EOMI, PERRL ENT: Present: mucous membranes moist Nose: moist mucous membranes - Routine Neck Exam Present: supple, full ROM, trachea midline - Routine Respiratory Exam Present: accessory muscle use, decreased breath sounds, prolonged expiratory phase, wheezes. Absent: patient mechanically ventilated - Routine Cardiovascular Exam Present: RRR, S1, S2, no murmur - Routine Abdominal Exam Present: soft, normoactive bowel sounds - Routine Extremities Exam Present: no edema, non tender, full ROM - Routine Back/Spine/Pelvis Exam Back/Spine: Present: full ROM - Routine Skin Exam Present: intact, dry - Routine Neurological Exam Present: alert, oriented X3, CN II-XII intact - Routine Psychiatric Exam Present: normal affect, normal thought process Results - Laboratory Findings CBC and BMP: 06/19/17 05:29 06/19/17 05:29 Abnormal lab findings: Abnormal Labs 06/19/17 06/19/17 05:29 05:29 Neutrophils % (Manual) 90.0 H Lymphocytes % (Manual) 8.0 L Lymphocytes # (Manual) 0.6 L Chloride 108 H Creatinine 0.6 L BUN/Creatinine Ratio 28 H Glucose 157 H Calculated Osmolality 282 H Assessment and Plan - Assessment and Plan Acute Hypoxic Respiratory Failure COPD exacerbation RUL nodule - stable per pt report, awaiting documents from [facility] - on hydroxychloroquine Plan: Pt currently on O2 at 2L per [place], sats stable but appears SOB. Will check an ABG and order bipap for her SOB. On Bt's with pulmicort BID, A/A QID, will increase to q4hr. On solumedrol 125 q6hr and will cont at this time. Likely with severe COPD, not on any inhalers at home, quit smoking 90 days ago. Would likely benefit from OP PFT and inhaled regimen. If nodule stable for at least 2 years would need no further workup. - Time Spent With Patient Total time spent is greater than 50% in coordination of care (as documented) at patient's floor/unit and/or counseling patient: 25 - 35 minutes <Dennis Foster - Last Filed: 06/20/17 11:48> Exam Vital signs: Temperature 97.8 F 06/20/17 11:26 Pulse Rate 86 06/20/17 11:26 Respiratory Rate 18 06/20/17 11:26 Blood Pressure 151/71 H 06/20/17 11:26 Pulse Oximetry 94 06/20/17 11:26 Results - Laboratory Findings CBC and BMP: 06/20/17 05:36 06/20/17 05:36 ABG ABG pH 7.410 (7.350-7.450) 06/19/17 13:30 ABG pCO2 37 MMHG (34-45) 06/19/17 13:30 ABG pO2 59 MMHG (80-100) L 06/19/17 13:30 ABG O2 Saturation 91.0 % (95.0-98.0) L 06/19/17 13:30 Abnormal lab findings: Abnormal Labs 06/20/17 06/20/17 06/20/17 05:36 05:36 08:19 WBC 14.4 H D Neutrophils % (Manual) 92.0 H Lymphocytes % (Manual) 5.0 L Neutrophils # (Manual) 13.2 H Lymphocytes # (Manual) 0.7 L BUN 21.0 H BUN/Creatinine Ratio 30 H Glucose 153 H Calculated Osmolality 283 H Plasma Lactate 2.8 H Ur Specific [place] 06/20/17 10:24 WBC Neutrophils % (Manual) Lymphocytes % (Manual) Neutrophils # (Manual) Lymphocytes # (Manual) BUN BUN/Creatinine Ratio Glucose Calculated Osmolality Plasma Lactate Ur Specific [place] 1.010 L Assessment and Plan - Time Spent With Patient Total time spent is greater than 50% in coordination of care (as documented) at patient's floor/unit and/or counseling patient: - Attestation Attestation Narrative: I have seen and examined the patient and reviewed all pertinent data. The notes above by the PRINCIPAL ACCOUNT CLERK represent my findings and recommendations.
--- NOTE | 2017-06-19 14:49 | Progress Note ---
- Date 06/19/17 Subjective: Patient reports that she feels a little better but is still audibly wheezing and has conversational dyspnea. She is tachypneic and displays increased work of breathing. She has chronic back pain but denies chest pain. Last evening she was saturating 87% on room air, and continues to need O2. She was able to sleep better last night. Objective Vital signs: Temperature 97.2 F 06/19/17 07:47 Pulse Rate 101 H 06/19/17 08:36 Respiratory Rate 24 06/19/17 11:55 Blood Pressure 145/85 H 06/19/17 08:53 Pulse Oximetry 94 06/19/17 12:03 Height/Weight/BMI: Height 1.6 m Weight 61.3 kg Body Mass Index 23.4 - Constitutional Present: mild distress, thin - Routine HEENT Exam Head: Present: normocephalic Eye: Present: PERRL. Absent: conjunctival icterus, scleral injection - Routine Respiratory Exam Present: accessory muscle use, dyspnea, decreased breath sounds, prolonged expiratory phase, wheezes, diminished air movement. Absent: CTA bilaterally Comments: conversational dyspnea -- no more than 4 words at a time. - Routine Cardiovascular Exam Present: RRR, S1, S2 - Routine Abdominal Exam Present: soft, normoactive bowel sounds, non distended, non tender - Routine Extremities Exam Present: no edema, pulses intact - Routine Musculoskeletal Exam Musculoskeletal: Present: moving extremities well - Routine Skin Exam Present: intact, dry, warm - Routine Neurological Exam Present: alert, oriented X3 - Routine Psychiatric Exam Present: normal affect, normal thought process, cooperative Results - Labs CBC & Chem 7: 06/19/17 05:29 06/19/17 05:29 - ABG Interpretation ABG results: 06/19/17 13:30 ABG pH 7.410 ABG pCO2 37 ABG pO2 59 L ABG HCO3 23.0 ABG Total CO2 24.0 ABG O2 Saturation 91.0 L ABG Base Excess -1.0 Assessment and Plan (1) COPD exacerbation Current visit: Yes Status: Acute Assessment and Plan: IMPRESSION COPD exacerbation Acute hypoxic respiratory insufficiency Hypernatremia (POA) - resolved Thrush (POA) - Mycelex started 06/18 Anorexia Anxiety secondary to hypoxia Lung nodule, chronic Mild diastolic dysfunction, preserved EF Mild pulmonary HTN RA GERD Chronic back pain Tobacco dependency PLAN Still with wheezing, decreased air movement, and O2 requirement. Will need to continue high-dose IV steroids and breathing treatments. Change status to inpatient as it's expected to take more than 2 nights to improve her respiratory symptoms. Continue IV Ativan to help with air-hunger (high-risk med) . Pt seen by INOCENCIA Montes with Dr. Foster - ABG and BiPAP ordered. [facility] records reviewed - no mention of pulmonary nodule w/u but chart did include diagnosis of COPD. Still awaiting records from [facility]. Hypernatremia - resolved. Decrease rate of fluid to 50 ml/hr. PO intake improving. Could potentially restart Bumex in the next day or two. Discussed with Dr. Ivan Montes. Outside records reviewed. DVT Prophylaxis: SCD's Resuscitation Status: Do Not Resuscitate - Time spent with patient Time with patient PN: 25 minutes - Physician Narrative Physician: Candido Love MD Narrative: Date: 06/19/17 Time: 1814 Have independently interviewed and examined pt. Chart reviewed. Case discussed with CM and my MANAGER FACILITY. Care plan developed with my supervision; agree with above. Doing better this evening. Did wear BIPAP during the day-helped, but hard to get used to. Still very SOA and congested. Work of breathing with decrease. Eating well-no nausea or ab pain. Lungs: decreased, little air movement. Much less work of breathing. CV: distant , regular MSE: awake alert Plan: Changed to inpatient admission secondary to persistent hypoxia not resolving with treatments initiated in OBS. Pulm consult. Continue with Steroids and Neb treatments. Sodium improving-continue low flow IVF, rate decreased to 50. PT/OT consulted for pulm debility. Encourage tobacco cessation - will have prn Nicotine patches available. Monitor lab and respirator status. Hospital Course Summary Disclaimer: The visit summary below is not to be considered part of the above Progress Note. Hospital Course: 06/18/17 Admit, OBS status, under the hospitalist service. Check respiratory panel. Significant smoking hx; quit approx 9 days ago. Suspect COPD and will treat wheezing as exacerbation of COPD with DuoNeb, Pulmicort, Solu-Medrol 125 Q6h, and Ativan/MS PRN air hunger. Consider consulting Dr. Foster. Hypernatremia - 1/2 NS. Recheck in am. Hold Bumex for now. Request records from [facility] regarding w/u for lung nodule, which pt/spouse ( Simba) report is chronic. Check B12 d/t reddened tongue. Do suspect thrush - start Mycelex and have Swizzle prn stomatitis pain. Consult PT/OT - RN reports gait is unsteady. Thrush - Mycelex. Code status: DNR. 06/19/17 Still with wheezing, decreased air movement, and O2 requirement. Will need to continue high-dose IV steroids and breathing treatments. Change status to inpatient as it's expected to take more than 2 nights to improve her respiratory symptoms. Continue IV Ativan to help with air-hunger (high-risk med). Pt seen by INOCENCIA Montes with Dr. Foster - PEDRITO and BiPAP ordered. [facility] records reviewed - no mention of pulmonary nodule w/u but chart did include diagnosis of COPD. Still awaiting records from [facility]. Hypernatremia - resolved. Decrease rate of fluid to 50 ml/hr. PO intake improving. Could potentially restart Bumex in the next day or two.
[2017-06-19 17:07] VITALS: BMI 23.9
[2017-06-19] MEDS ORDERED: NICOTINE 14 MG PATCH TD PRN (20:55)
[2017-06-20] MEDS: ALBUTEROL/IPRATROPIUM 2.5mg-0.5mg/3ml NEB AEROSOL SCH ×6 (03:07→23:32)
[2017-06-20] MEDS: METHYLPREDNISOLONE SOD SUCC 125mg/2ml INJECTION IVP SCH ×4 (03:24→19:59)
[2017-06-20] MEDS: SALINE FLUSH 10ml SYRINGE IVF PRN ×2 (03:25→19:53)
[2017-06-20] MEDS: HYDROCODONE/APAP 7.5 MG/325 MG TABLET PO PRN ×4 (04:30→22:45)
[2017-06-20] MEDS: BUDESONIDE INH.SOLN 0.5mg/2ml NEB AEROSOL SCH ×2 (06:48→20:51)
[2017-06-20] MEDS: HYDROXYCHLOROQUINE 200 MG PO SCH (08:25)
[2017-06-20] MEDS: CLOTRIMAZOLE 10 MG TROCHE MM SCH ×5 (08:25→19:59)
[2017-06-20] MEDS: GUAIFENESIN/D-METHORPHAN 600mg/30mg TABLET PO SCH ×2 (08:25→19:59)
[2017-06-20] MEDS: SALINE 0.65% NASAL SPRAY 44 ML BOTTLE EA NOSTRIL SCH ×4 (08:26→19:59)
[2017-06-20] MEDS ORDERED: HYDROXYCHLOROQUINE 200 MG TABLET PO SCH (09:00)
[2017-06-20] MEDS ORDERED: NICOTINE 14 MG PATCH TD PRN (09:00)
--- NOTE | 2017-06-20 09:22 | Progress Note ---
- Date 06/20/17 Subjective: I was called by the nurse this morning that the patient had possible sepsis based on elevated white count, increased glucose, hypoxia, and low temperature. I did order a lactate which came back as elevated at 2.6. The patient states that she does feel short of breath and continues to feel congested in her chest. She does feel short of breath with activity. She feels a little bit lightheaded standing up. She has some chronic back pain. She denies any chest pain or abdominal pain. She did eat breakfast and denies any nausea. She had a bowel movement yesterday and is urinating okay today. Objective Vital signs: Temperature 96.4 F L 06/20/17 07:26 Pulse Rate 89 06/20/17 07:26 Respiratory Rate 22 06/20/17 07:26 Blood Pressure 144/75 H 06/20/17 07:26 Pulse Oximetry 94 06/20/17 07:26 Height/Weight/BMI: Height 1.6 m Weight 62.4 kg Body Mass Index 23.9 Comments: Temperature is 96.4, heart rate 89, blood pressure 144/75, O2 sat 94% on 2 L. Telemetry was reviewed and shows sinus rhythm with no significant arrhythmias GEN-alert, oriented, mild dyspnea HEENT-oropharynx is moist, tongue is erythematous with one small white area that looks like possible thrush NECK-supple, no obvious JVD CV-regular rate and rhythm CHEST-mild expiratory wheezes throughout, no crackles, no rhonchi ABD-soft, nontender with positive bowel sounds -no Garcia EXT-no edema, SCDs are on NEURO-no focal deficits SKIN-warm and dry and without rashes Results - Labs CBC & Chem 7: 06/20/17 05:36 06/20/17 05:36 Labs: Lactate is 2.6 this morning. Bands are 2%, B 12 is pending Assessment and Plan (1) COPD exacerbation Current visit: Yes Status: Acute Assessment and Plan: IMPRESSION COPD exacerbation Acute hypoxic respiratory insufficiency Elevated lactate 2.6 on 06/20/2017, possible sepsis Hypernatremia (POA) - resolved Thrush (POA) - Mycelex started 06/18 Anorexia Anxiety secondary to hypoxia Lung nodule, chronic Mild diastolic dysfunction, preserved EF Mild pulmonary HTN RA GERD Chronic back pain Tobacco dependency PLAN Regarding elevated lactate with possible sepsis, will obtain blood cultures 2. Start Rocephin 1 g IV daily. Check urinalysis and chest x-ray now. We'll give a fluid bolus if chest x-ray does not show fluid overload. Repeat lactate. Monitor vitals closely. Obtain sputum for Gram stain, culture and sensitivity. Continue steroids, breathing treatments, supplemental oxygen, BiPAP as needed. Await outside records regarding possible tonic lung nodule DVT Prophylaxis: SCD's Resuscitation Status: Do Not Resuscitate - Physician Narrative Narrative: Date: 06/20/17 Time: 918 Hospital Course Summary Disclaimer: The visit summary below is not to be considered part of the above Progress Note. Hospital Course: 06/18/17 Admit, OBS status, under the hospitalist service. Check respiratory panel. Significant smoking hx; quit approx 9 days ago. Suspect COPD and will treat wheezing as exacerbation of COPD with DuoNeb, Pulmicort, Solu-Medrol 125 Q6h, and Ativan/MS PRN air hunger. Consider consulting Dr. Foster. Hypernatremia - 1/2 NS. Recheck in am. Hold Bumex for now. Request records from [facility] regarding w/u for lung nodule, which pt/spouse ( Simba) report is chronic. Check B12 d/t reddened tongue. Do suspect thrush - start Mycelex and have Swizzle prn stomatitis pain. Consult PT/OT - RN reports gait is unsteady. Thrush - Mycelex. Code status: DNR. 06/19/17 Still with wheezing, decreased air movement, and O2 requirement. Will need to continue high-dose IV steroids and breathing treatments. Change status to inpatient as it's expected to take more than 2 nights to improve her respiratory symptoms. Continue IV Ativan to help with air-hunger (high-risk med). Pt seen by INOCENCIA Montes with Dr. Foster - ABG and BiPAP ordered. [facility] records reviewed - no mention of pulmonary nodule w/u but chart did include diagnosis of COPD. Still awaiting records from [facility]. Hypernatremia - resolved. Decrease rate of fluid to 50 ml/hr. PO intake improving. Could potentially restart Bumex in the next day or two. 06/20/2017 Regarding elevated lactate with possible sepsis, will obtain blood cultures 2. Start Rocephin 1 g IV daily. Check urinalysis and chest x-ray now. We'll give a fluid bolus if chest x-ray does not show fluid overload. Repeat lactate. Monitor vitals closely. Continue steroids, breathing treatments, supplemental oxygen, BiPAP as needed. Await outside records regarding possible tonic lung nodule
[2017-06-20] MEDS: CEFTRIAXONE 1 G in NS 50 ML IV SCH (10:25)
--- NOTE | 2017-06-20 10:43 | XRay Report ---
INDICATION: hypoxia PROCEDURE: CHEST 2-VIEWS UPRIGHT (PA & LAT) Encounter: Initial COMPARISON: July 16, 2017 FINDINGS: Right upper lobe pulmonary nodule is again noted. There is slight increase in pulmonary vascular prominence compared to the prior study with a few Kurt B lines present. No consolidative pneumonia. No pleural effusion or pneumothorax. Heart size and mediastinal contours are stable. Impression: Developing mild pulmonary vascular congestion or edema. .
[2017-06-20] MEDS: 1/2 NS 1,000 ML IV SCH (12:13)
[2017-06-21] MEDS: SALINE FLUSH 10ml SYRINGE IVF PRN (03:47)
[2017-06-21] MEDS: METHYLPREDNISOLONE SOD SUCC 125mg/2ml INJECTION IVP SCH ×4 (03:52→20:45)
[2017-06-21] MEDS: HYDROCODONE/APAP 7.5 MG/325 MG TABLET PO PRN ×3 (03:57→19:46)
[2017-06-21] MEDS: ALBUTEROL/IPRATROPIUM 2.5mg-0.5mg/3ml NEB AEROSOL SCH ×6 (04:02→23:55)
[2017-06-21] MEDS ORDERED: BUMETANIDE 1 MG TABLET PO PRN (07:36)
[2017-06-21] MEDS: BUDESONIDE INH.SOLN 0.5mg/2ml NEB AEROSOL SCH ×2 (07:54→20:51)
[2017-06-21] MEDS ORDERED: NICOTINE PATCH REMOVAL TD PRN (09:00)
[2017-06-21] MEDS: CLOTRIMAZOLE 10 MG TROCHE MM SCH ×5 (09:23→20:46)
[2017-06-21] MEDS: GUAIFENESIN/D-METHORPHAN 600mg/30mg TABLET PO SCH ×2 (09:23→20:46)
[2017-06-21] MEDS: CEFTRIAXONE 1 G in NS 50 ML IV SCH (09:23)
[2017-06-21] MEDS: HYDROXYCHLOROQUINE 200 MG PO SCH (09:23)
[2017-06-21] MEDS: SALINE 0.65% NASAL SPRAY 44 ML BOTTLE EA NOSTRIL SCH ×4 (09:24→20:46)
--- NOTE | 2017-06-21 11:53 | Pulmonology Progress Note ---
Subjective Principal diagnosis: SOB Interval history: Pt in bed, states her breathing is a litle better and has more "wind" today. + cough with minimal sputum noted at this time. Exam Vital signs: Temperature 97.2 F 06/21/17 10:00 Pulse Rate 91 06/21/17 10:00 Respiratory Rate 18 06/21/17 10:00 Blood Pressure 161/71 H 06/21/17 10:00 Pulse Oximetry 92 06/21/17 10:00 Inpatient Medications: Generic Name Dose Route Start Last Admin Trade Name Freq PRN Reason Stop Dose Admin Hydrocodone Bitart/Acetaminophen 1 tab 06/18/17 18:19 06/21/17 03:57 [place] 7.5/325 PO 1 tab Q4H PRN Administration Pain Albuterol/Ipratropium 3 ml 06/18/17 18:19 Duoneb AEROSOL Q4HR PRN Shortness of air Albuterol/Ipratropium 3 ml 06/19/17 16:00 06/21/17 07:54 Duoneb AEROSOL 3 ml Q4HR JAMAR Administration Bisacodyl 10 mg 06/18/17 18:19 Dulcolax RECTALLY DAILY PRN Constipation Budesonide 0.5 mg 06/18/17 19:00 06/21/17 07:54 Pulmicort Inhalation AEROSOL 0.5 mg RTBID JAMAR Administration Bumetanide 1 mg 06/21/17 07:36 Bumex 1 Mg Tab PO DAILY PRN Clotrimazole 10 mg 06/18/17 21:27 06/21/17 09:23 Mycelex Benito MM 10 mg 5XD JAMAR Administration Guaifenesin/Dextromethorphan 1 tab 06/18/17 21:00 06/21/17 09:23 Mucinex Dm PO 1 tab BID JAMAR Administration Hydroxychloroquine Sulfate 400 mg 06/21/17 08:00 06/21/17 09:23 Plaquenil PO 400 mg WB JAMAR Administration Sodium Chloride 1,000 mls @ 50 mls/hr 06/18/17 18:19 06/20/17 12:13 1/2 Normal Saline IV 50 mls/hr .Q20H JAMAR Administration Ceftriaxone Sodium 1 g/ Sodium 50 mls @ 100 mls/hr 06/20/17 09:30 06/21/17 09 :23 Chloride IV 100 mls/hr Q24H JAMAR Administration Lorazepam 0.5 mg 06/18/17 18:19 06/20/17 19:53 Ativan Inj IVP 0.5 mg Q4H PRN Administration Anxiety/Air hunger/Agitation Magnesium Hydroxide 30 ml 06/18/17 18:19 Mom PO DAILY PRN Constipation Menthol 1 lozenge 06/18/17 18:19 Ricola Sf MM PRN PRN Cough Methylprednisolone Sodium Succinate 125 mg 06/18/17 21:00 06/21/17 09:24 Solu-Medrol IVP 125 mg Q6HR JAMAR Administration Morphine Sulfate 2 mg 06/18/17 18:19 Morphine Sulfate Inj IVP Q2HR PRN Pain Nicotine 1 removal 06/21/17 09:00 Nicotine Patch Removal TD DAILY PRN Nicotine 14 mg 06/20/17 09:00 Nicoderm TD DAILY PRN Cessation/Smoking/Tobacco use Ondansetron HCl 4 mg 06/18/17 18:19 Zofran IVP Q6H PRN Nausea Pharmacy Profile Note 5 ml 06/18/17 21:26 Lidocaine/Maalox/Benadryl Soln PO Q4H PRN Mouth pain Promethazine HCl/Codeine 5 ml 06/18/17 18:19 06/18/17 21:03 Phenergan + Codeine PO 5 ml Q6HR PRN Administration Cough Sodium Chloride 10 - 80 ml 06/18/17 15:18 06/21/17 03:47 Iv Flush IVF 10 ml PRN PRN Administration [place]ushing Sodium Chloride 2 spray 06/18/17 21:28 06/21/17 09:24 Deep Sea Nasal Moisturizing [place] EA NOSTRIL 2 spray QID [facility] Administration Discontinued Medications Generic Name Dose Route Start Last Admin Trade Name Freq PRN Reason Stop Dose Admin Albuterol/Ipratropium 3 ml 06/18/17 15:02 06/18/17 15:19 Duoneb AEROSOL 06/18/17 15:03 3 ml O ONE Administration Albuterol/Ipratropium 3 ml 06/18/17 17:26 06/18/17 17:36 Duoneb AEROSOL 06/18/17 17:27 3 ml O ONE Administration Albuterol/Ipratropium 3 ml 06/18/17 19:00 06/19/17 11:55 Duoneb AEROSOL 3 ml RTQID JAMAR Administration Hydroxychloroquine Sulfate 200 mg 06/18/17 18:19 06/19/17 09:19 Plaquenil PO Not Given BIDWM [facility] Hydroxychloroquine Sulfate 400 mg 06/20/17 09:00 Plaquenil PO DAILY [facility] Hydroxychloroquine Sulfate 400 mg 06/19/17 09:19 06/20/17 08:25 Plaquenil PO 400 mg DAILY JAMAR Administration Levalbuterol HCl 1.25 mg 06/18/17 16:06 06/18/17 16:29 Xopenex 1.25mg/3ml AEROSOL 06/18/17 16:07 1.25 mg O ONE Administration Lorazepam 1 mg 06/18/17 18:02 06/18/17 18:09 Ativan Inj IVP 06/18/17 18:03 1 mg O ONE Administration Methylprednisolone Sodium Succinate 125 mg 06/18/17 15:30 06/18/17 15:35 Solu-Medrol IVP 06/18/17 15:31 125 mg O ONE Administration Nicotine 14 mg 06/19/17 20:55 Nicoderm TD DAILY PRN Cessation/Smoking/Tobacco use - Constitutional mild distress, average body habitus, cooperative - Routine HEENT Exam Head: Present: normocephalic, atraumatic Eye: Present: EOMI, PERRL ENT: Present: mucous membranes moist - Routine Neck Exam Present: supple, full ROM, trachea midline - Routine Respiratory Exam Present: decreased breath sounds, prolonged expiratory phase, wheezes. Absent: accessory muscle use, patient mechanically ventilated - Routine Cardiovascular Exam Present: RRR, S1, S2, no murmur - Routine Abdominal Exam Present: soft, normoactive bowel sounds - Routine Extremities Exam Present: no edema, non tender, full ROM - Routine Back/Spine/Pelvis Exam Back/Spine: Present: full ROM - Routine Skin Exam Present: intact, dry - Routine Neurological Exam Present: alert, oriented X3, CN II-XII intact - Routine Psychiatric Exam Present: normal affect, normal thought process Results - Laboratory Findings Laboratory: Laboratory Results - last 48 hr 06/20/17 06/20/17 06/20/17 05:36 05:36 08:19 WBC 14.4 H D RBC 4.43 Hgb 12.2 Hct 39.2 MCV 88.5 MCH 27.5 MCHC 31.1 RDW Std Deviation 43.3 Plt Count 329 MPV 9.6 Immature Gran % (Auto) Not performed Neut % (Auto) Not performed Lymph % (Auto) Not performed Towns % (Auto) Not performed Eos % (Auto) Not performed Baso % (Auto) Not performed Neut # (Auto) Not performed Lymph # (Auto) Not performed Towns # (Auto) Not performed Eos # (Auto) Not performed Baso # (Auto) Not performed Abs Immat Gran (auto) Not performed Neutrophils % (Manual) 92.0 H Band Neutrophils % 2.0 Lymphocytes % (Manual) 5.0 L Monocytes % (Manual) 1.0 Neutrophils # (Manual) 13.2 H Band Neutrophils # 0.3 Lymphocytes # (Manual) 0.7 L Monocytes # (Manual) 0.1 RBC Morph Comment Normal Turbidity < 20 Sodium 144 Potassium 4.0 Chloride 105 Carbon Dioxide 26 Anion Gap 13 BUN 21.0 H Creatinine 0.7 GFR Calculation 81 BUN/Creatinine Ratio 30 H Glucose 153 H Calculated Osmolality 283 H Calcium 8.7 Total Bilirubin Icterus Index < 2 AST ALT Alkaline Phosphatase Total Protein Albumin Globulin Albumin/Globulin Ratio Plasma Lactate 2.8 H Specimen Hemolysis < 15 Ur Collection Type Urine Color Urine Clarity Urine pH Ur Specific [place] Urine Protein Urine Glucose (UA) Urine Ketones Urine Occult Blood Urine Nitrate Urine Bilirubin Urine Urobilinogen Ur Leukocyte Esterase Urinalysis Comment 06/20/17 06/20/17 06/21/17 10:24 13:05 06:03 WBC 13.7 H RBC 4.61 Hgb 12.6 Hct 41.2 MCV 89.4 MCH 27.3 MCHC 30.6 L RDW Std Deviation 45.1 Plt Count 365 MPV 9.4 Immature Gran % (Auto) Neut % (Auto) Lymph % (Auto) Towns % (Auto) Eos % (Auto) Baso % (Auto) Neut # (Auto) Lymph # (Auto) Towns # (Auto) Eos # (Auto) Baso # (Auto) Abs Immat Gran (auto) Neutrophils % (Manual) 94.0 H Band Neutrophils % 1.0 Lymphocytes % (Manual) 2.0 L Monocytes % (Manual) 3.0 Neutrophils # (Manual) 12.9 H Band Neutrophils # 0.1 Lymphocytes # (Manual) 0.3 L Monocytes # (Manual) 0.4 RBC Morph Comment Normal Turbidity Sodium Potassium Chloride Carbon Dioxide Anion Gap BUN Creatinine GFR Calculation BUN/Creatinine Ratio Glucose Calculated Osmolality Calcium Total Bilirubin Icterus Index AST ALT Alkaline Phosphatase Total Protein Albumin Globulin Albumin/Globulin Ratio Plasma Lactate 1.7 Specimen Hemolysis Ur Collection Type Urine, void-cc/notcc Urine Color Yellow Urine Clarity Clear Urine pH 6.0 Ur Specific [place] 1.010 L Urine Protein Negative Urine Glucose (UA) Negative Urine Ketones Negative Urine Occult Blood Negative Urine Nitrate Negative Urine Bilirubin Negative Urine Urobilinogen 0.2 Ur Leukocyte Esterase Negative Urinalysis Comment Microscopic not ind. 06/21/17 06:03 WBC RBC Hgb Hct MCV MCH MCHC RDW Std Deviation Plt Count MPV Immature Gran % (Auto) Neut % (Auto) Lymph % (Auto) Towns % (Auto) Eos % (Auto) Baso % (Auto) Neut # (Auto) Lymph # (Auto) Towns # (Auto) Eos # (Auto) Baso # (Auto) Abs Immat Gran (auto) Neutrophils % (Manual) Band Neutrophils % Lymphocytes % (Manual) Monocytes % (Manual) Neutrophils # (Manual) Band Neutrophils # Lymphocytes # (Manual) Monocytes # (Manual) RBC Morph Comment Turbidity < 20 Sodium 144 Potassium 4.2 Chloride 105 Carbon Dioxide 26 Anion Gap 13 BUN 23.0 H Creatinine 0.6 L GFR Calculation 97 BUN/Creatinine Ratio 38 H Glucose 143 H Calculated Osmolality 283 H Calcium 8.7 Total Bilirubin < 0.10 L Icterus Index < 2 AST 29 D ALT 44 Alkaline Phosphatase 79 Total Protein 6.6 Albumin 3.9 Globulin 2.7 Albumin/Globulin Ratio 1.4 Plasma Lactate Specimen Hemolysis < 15 Ur Collection Type Urine Color Urine Clarity Urine pH Ur Specific [place] Urine Protein Urine Glucose (UA) Urine Ketones Urine Occult Blood Urine Nitrate Urine Bilirubin Urine Urobilinogen Ur Leukocyte Esterase Urinalysis Comment - Diagnostic Findings Chest x-ray: image reviewed (no new CXR) Assessment and Plan - Assessment and Plan Acute Hypoxic Respiratory Failure COPD exacerbation RUL nodule - stable per pt report, awaiting documents from [facility] - on hydroxychloroquine Plan: Pt currently on O2 at 2L per NC, bipap 16, 10/5 prn, used yesterday. On Bt's with pulmicort BID, A/A q4hr with solumedrol 125 q6hr. Still with slight wheeze but improving, will decrease solumedrol to 80mg. Likely with severe COPD, not on any inhalers at home, quit smoking 90 days ago. Would likely benefit from OP PFT and inhaled regimen. If nodule stable for at least 2 years would need no further workup. - Time Spent With Patient Total time spent is greater than 50% in coordination of care (as documented) at patient's floor/unit and/or counseling patient: less than 15 minutes
--- NOTE | 2017-06-21 15:48 | Progress Note ---
- Date 06/21/17 Subjective: Abida states that her breathing is better. She can only tolerate the bipap for short periods of time b/c she feels "claustrophobic". She continues to cough at times and had severe back pain last night - it's resolved currently but she's afraid it might return. She feels dizzy when she gets up and is afraid of falling. She also notes constipation with mild abdominal discomfort. Last BM was 3 days ago. She denies n/v. Objective Vital signs: Temperature 98.2 F 06/21/17 14:00 Pulse Rate 87 06/21/17 14:00 Respiratory Rate 14 06/21/17 14:00 Blood Pressure 160/78 H 06/21/17 14:00 Pulse Oximetry 94 06/21/17 14:00 Height/Weight/BMI: Height 1.6 m Weight 64.9 kg Body Mass Index 23.9 - Constitutional Present: well nourished, well developed, thin - Routine HEENT Exam Head: Present: normocephalic Eye: Absent: conjunctival icterus, scleral injection ENT: Present: mucous membranes moist Comments: tongue is red - Routine Respiratory Exam Present: wheezes, diminished air movement - Routine Cardiovascular Exam Present: RRR, S1, S2 - Routine Abdominal Exam Present: soft, normoactive bowel sounds, non distended, non tender - Routine Extremities Exam Present: no edema, pulses intact - Routine Musculoskeletal Exam Musculoskeletal: Present: moving extremities well - Routine Skin Exam Present: intact, dry, warm - Routine Neurological Exam Present: alert, oriented X3, CN II-XII intact, normal speech - Routine Psychiatric Exam Present: normal affect, normal thought process, cooperative Results - Labs CBC & Chem 7: 06/21/17 06:03 06/21/17 06:03 Microbiology Results: Microbiology 06/20/17 09:48 Peripheral/Iv Start Blood Culture - Preliminary No Growth After 1 Day 06/20/17 09:47 Peripheral/Iv Start Blood Culture - Preliminary No Growth After 1 Day Assessment and Plan (1) COPD exacerbation Current visit: Yes Status: Acute Assessment and Plan: IMPRESSION COPD exacerbation Acute hypoxic respiratory insufficiency Elevated lactate 2.6 on 06/20/2017, possible sepsis Hypernatremia (POA) - resolved Thrush (POA) - Mycelex started 06/18 Anorexia Anxiety secondary to hypoxia Constipation Lung nodule, chronic Mild diastolic dysfunction, preserved EF Mild pulmonary HTN RA GERD Chronic back pain Tobacco dependency PLAN WBC improved to 13.7 and lactate trended down. BC & sputum pending. Continue Rocephin, day #2. UA was neg for UTI. CXR yest revealed mild edema. Consider IV Lasix d/t CXR findings and weight gain. Steroid dose reduced per pulmonology. Appreciate their expertise. Still awaiting records from [facility] regarding w/u for pulm nodule - community development specialist will call again today. Constipation - start Senna Plus and MiraLAX. Ativan PRN air hunger - received dose last evening. (high risk med) Continue PT/OT. 06/21/2017-6:50 PM-I reviewed this chart, the patient history, and the [employer]'s/PA 's documented findings as above. We discussed and formulated the assessment and plan as above with the additions below.-Dr. Coker Patient was seen this evening. She states her breathing is a little better today. She is eating and drinking well. She denies any pain currently. On exam she is alert and in no acute distress. Chest reveals expiratory wheezes throughout. Cardiovascular reveals a regular rate and rhythm. Abdomen is soft and nontender. Extremities are free of edema. Weight is up 5 kg since admission. Impression and plan COPD exacerbation Acute hypoxic respiratory failure-no breathing treatments, oxygen, steroids. Appreciate Dr. Foster's help. Possible sepsis-Rocephin initiated yesterday. Await cultures Regarding weight gain and questionable pulmonary edema, offered diuretic tonight but the patient declined. Restart Bumex tomorrow. IV fluids discontinued. Repeat chest x-ray tomorrow. Overall, the patient appears to be improving. DVT Prophylaxis: SCD's Resuscitation Status: Do Not Resuscitate - Physician Narrative Narrative: Date: 06/21/17 Time: 1543 Hospital Course Summary Disclaimer: The visit summary below is not to be considered part of the above Progress Note. Hospital Course: 06/18/17 Admit, OBS status, under the hospitalist service. Check respiratory panel. Significant smoking hx; quit approx 9 days ago. Suspect COPD and will treat wheezing as exacerbation of COPD with DuoNeb, Pulmicort, Solu-Medrol 125 Q6h, and Ativan/MS PRN air hunger. Consider consulting Dr. Foster. Hypernatremia - 1/2 NS. Recheck in am. Hold Bumex for now. Request records from [facility] regarding w/u for lung nodule, which pt/spouse ( Simba) report is chronic. Check B12 d/t reddened tongue. Do suspect thrush - start Mycelex and have Swizzle prn stomatitis pain. Consult PT/OT - RN reports gait is unsteady. Thrush - Mycelex. Code status: DNR. 06/19/17 Still with wheezing, decreased air movement, and O2 requirement. Will need to continue high-dose IV steroids and breathing treatments. Change status to inpatient as it's expected to take more than 2 nights to improve her respiratory symptoms. Continue IV Ativan to help with air-hunger (high-risk med). Pt seen by INOCENCIA Montes with Dr. Foster - ABG and BiPAP ordered. [facility] records reviewed - no mention of pulmonary nodule w/u but chart did include diagnosis of COPD. Still awaiting records from [facility]. Hypernatremia - resolved. Decrease rate of fluid to 50 ml/hr. PO intake improving. Could potentially restart Bumex in the next day or two. 06/20/17 Regarding elevated lactate with possible sepsis, will obtain blood cultures 2. Start Rocephin 1 g IV daily. Check urinalysis and chest x-ray now. We'll give a fluid bolus if chest x-ray does not show fluid overload. Repeat lactate. Monitor vitals closely. Continue steroids, breathing treatments, supplemental oxygen, BiPAP as needed. 06/21/17 WBC improved to 13.7 and lactate trended down. BC & sputum pending. Continue Rocephin, day #2. UA was neg for UTI. CXR yest revealed mild edema. Consider IV Lasix d/t CXR findings and weight gain. Steroid dose reduced per pulmonology. Appreciate their expertise. Constipation - start Senna Plus and MiraLAX. Ativan PRN air hunger - received dose last evening. (high risk med). Continue PT /OT. Addendum entered and electronically signed by Taylor Soriano APRN 06/21/17 16: 04: [facility]. Pt actually has b/l pulmonary nodules from records in [address]. [address] scan of her chest which was suspicious for neoplasm, and then had PET scan which did not meet criteria for cancer. She saw Dr. Pereyra at that time.
[2017-06-21] MEDS: POLYETHYL GLYCOL 3350 17gm PACKET PO SCH (19:45)
[2017-06-21] MEDS: SENNA + DOCUSATE TABLET PO SCH (20:46)
[2017-06-21] MEDS: 1/2 NS 1,000 ML IV SCH (22:56)
[2017-06-22] MEDS: HYDROCODONE/APAP 7.5 MG/325 MG TABLET PO PRN ×4 (00:41→19:07)
[2017-06-22] MEDS: METHYLPREDNISOLONE SOD SUCC 125mg/2ml INJECTION IVP SCH ×3 (03:56→14:57)
[2017-06-22] MEDS: ALBUTEROL/IPRATROPIUM 2.5mg-0.5mg/3ml NEB AEROSOL SCH ×6 (05:31→23:20)
[2017-06-22] MEDS: BUDESONIDE INH.SOLN 0.5mg/2ml NEB AEROSOL SCH ×2 (08:53→18:51)
[2017-06-22] MEDS: CEFTRIAXONE 1 G in NS 50 ML IV SCH (09:42)
[2017-06-22] MEDS: POLYETHYL GLYCOL 3350 17gm PACKET PO SCH (09:43)
[2017-06-22] MEDS: SENNA + DOCUSATE TABLET PO SCH ×2 (09:43→22:25)
[2017-06-22] MEDS: SALINE 0.65% NASAL SPRAY 44 ML BOTTLE EA NOSTRIL SCH ×4 (09:43→22:25)
[2017-06-22] MEDS: HYDROXYCHLOROQUINE 200 MG PO SCH (09:44)
[2017-06-22] MEDS: CLOTRIMAZOLE 10 MG TROCHE MM SCH ×5 (09:44→22:24)
[2017-06-22] MEDS: GUAIFENESIN/D-METHORPHAN 600mg/30mg TABLET PO SCH ×2 (09:46→22:24)
[2017-06-22] MEDS ORDERED: FUROSEMIDE 20 MG/2 ML INJECTION IVP ONE (12:37)
--- NOTE | 2017-06-22 12:41 | Progress Note ---
- Date 06/22/17 Subjective: F/U: COPD exacerbation, Acute hypoxic respiratory insufficiency Doing okay-breathing improving, but still SOA with activities. Notes congestion to chest, cough decreasing. Not producing sputum. Eating okay. Bowels moving. Does report slight edema. Moving more, but winds with activities. On 2L with normal saturations. Objective Vital signs: Temperature 97.1 F 06/22/17 07:47 Pulse Rate 75 06/22/17 08:00 Respiratory Rate 22 06/22/17 08:54 Blood Pressure 177/84 H 06/22/17 07:47 Pulse Oximetry 95 06/22/17 08:54 Height/Weight/BMI: Height 1.6 m Weight 62.7 kg Body Mass Index 23.9 - Constitutional Present: well nourished, well developed, average body habitus, cooperative - Routine HEENT Exam Head: Present: normocephalic, atraumatic Eye: Present: EOMI, PERRL ENT: Present: mucous membranes moist - Routine Respiratory Exam Present: decreased breath sounds, prolonged expiratory phase, distant breath sounds, diminished air movement. Absent: respiratory distress - Routine Cardiovascular Exam Present: RRR, no murmur - Routine Abdominal Exam Present: soft, normoactive bowel sounds, non distended, non tender - Routine Extremities Exam Present: edema (Trace ), pulses intact, normal capillary refill. Absent: cyanosis, clubbing - Routine Musculoskeletal Exam Musculoskeletal: Present: no clubbing or cyanosis - Routine Skin Exam Present: dry, warm - Routine Neurological Exam Present: alert, oriented X3, CN II-XII intact, moving all extremities, vision grossly intact, hearing grossly intact, normal speech. Absent: motor deficit, abnormal gait - Routine Psychiatric Exam Present: normal affect, normal thought process, cooperative. Absent: anxious, agitated Results - Labs CBC & Chem 7: 06/22/17 04:27 06/22/17 04:27 Microbiology Results: Microbiology 06/20/17 09:48 Peripheral/Iv Start Blood Culture - Preliminary No Growth After 2 Days 06/20/17 09:47 Peripheral/Iv Start Blood Culture - Preliminary No Growth After 2 Days Assessment and Plan (1) COPD exacerbation Current visit: Yes Status: Acute Assessment and Plan: IMPRESSION COPD exacerbation Acute hypoxic respiratory insufficiency Elevated lactate 2.6 on 06/20/2017, possible sepsis Hypernatremia (POA) - resolved Thrush (POA) - Mycelex started 06/18 Anorexia Anxiety secondary to hypoxia Constipation Lung nodule, chronic Mild diastolic dysfunction, preserved EF Mild pulmonary HTN RA GERD Chronic back pain Tobacco dependency PLAN Will continue with Rocephin for pulmonary coverage - Day #3. Continue Solu-Medrol and neb treatments. No wheezing, but lungs still very tight sounding. Wean O2 as able. Currently maintaining saturations 92-95% on 2L. Lasix 20mg IV x1 to help decrease edema. Encourage continuation of activities to help strength. Recheck CBC and BMP in am. Time spent with patient care 25 minuts. DVT Prophylaxis: SCD's Resuscitation Status: Do Not Resuscitate - Time spent with patient Time with patient PN: 25 minutes - Physician Narrative Physician: Candido Love MD Narrative: Date: 06/22/17 Time: 1237 Hospital Course Summary Disclaimer: The visit summary below is not to be considered part of the above Progress Note. Hospital Course: 06/18/17 Admit, OBS status, under the hospitalist service. Check respiratory panel. Significant smoking hx; quit approx 9 days ago. Suspect COPD and will treat wheezing as exacerbation of COPD with DuoNeb, Pulmicort, Solu-Medrol 125 Q6h, and Ativan/MS PRN air hunger. Consider consulting Dr. Foster. Hypernatremia - 1/2 NS. Recheck in am. Hold Bumex for now. Request records from [facility] regarding w/u for lung nodule, which pt/spouse ( Smiba) report is chronic. Check B12 d/t reddened tongue. Do suspect thrush - start Mycelex and have Swizzle prn stomatitis pain. Consult PT/OT - RN reports gait is unsteady. Thrush - Mycelex. Code status: DNR. 06/19/17 Still with wheezing, decreased air movement, and O2 requirement. Will need to continue high-dose IV steroids and breathing treatments. Change status to inpatient as it's expected to take more than 2 nights to improve her respiratory symptoms. Continue IV Ativan to help with air-hunger (high-risk med). Pt seen by INOCENCIA Montes with Dr. Foster - ABG and BiPAP ordered. [facility] records reviewed - no mention of pulmonary nodule w/u but chart did include diagnosis of COPD. Still awaiting records from [facility]. Hypernatremia - resolved. Decrease rate of fluid to 50 ml/hr. PO intake improving. Could potentially restart Bumex in the next day or two. 06/20/17 Regarding elevated lactate with possible sepsis, will obtain blood cultures 2. Start Rocephin 1 g IV daily. Check urinalysis and chest x-ray now. We'll give a fluid bolus if chest x-ray does not show fluid overload. Repeat lactate. Monitor vitals closely. Continue steroids, breathing treatments, supplemental oxygen, BiPAP as needed. 06/21/17 WBC improved to 13.7 and lactate trended down. BC & sputum pending. Continue Rocephin, day #2. UA was neg for UTI. CXR yest revealed mild edema. Consider IV Lasix d/t CXR findings and weight gain. Steroid dose reduced per pulmonology. Appreciate their expertise. Constipation - start Senna Plus and MiraLAX. Ativan PRN air hunger - received dose last evening. (high risk med). Continue PT /OT. Records received from [facility] and reviewed: Pt actually has b/l pulmonary nodules from records in 2011. She had CT scan of her chest which was suspicious for neoplasm, and then had PET scan which did not meet criteria for cancer. She saw Dr. Pereyra at that time. 06/22/17 Will continue with Rocephin for pulmonary coverage - Day #3. Continue Solu-Medrol and neb treatments. No wheezing, but lungs still very tight sounding. Wean O2 as able. Currently maintaining saturations 92-95% on 2L. Lasix 20mg IV x1 to help decrease edema. Encourage continuation of activities to help strength.
[2017-06-22] MEDS: SALINE FLUSH 10ml SYRINGE IVF PRN (13:03)
--- NOTE | 2017-06-22 17:48 | Pulmonology Progress Note ---
Subjective Principal diagnosis: SOB Interval history: up to chair. no new complaints. using O2 by nc. BIPAP at night Exam Vital signs: Temperature 97.6 F 06/22/17 15:47 Pulse Rate 85 06/22/17 16:01 Respiratory Rate 18 06/22/17 15:47 Blood Pressure 161/73 H 06/22/17 15:47 Pulse Oximetry 90 06/22/17 15:47 Inpatient Medications: Generic Name Dose Route Start Last Admin Trade Name Freq PRN Reason Stop Dose Admin Hydrocodone Bitart/Acetaminophen 1 tab 06/18/17 18:19 06/22/17 13:02 [place] 7.5/325 PO 1 tab Q4H PRN Administration Pain Albuterol/Ipratropium 3 ml 06/18/17 18:19 Duoneb AEROSOL Q4HR PRN Shortness of air Albuterol/Ipratropium 3 ml 06/19/17 16:00 06/22/17 14:24 Duoneb AEROSOL 3 ml Q4HR JAMAR Administration Bisacodyl 10 mg 06/18/17 18:19 Dulcolax RECTALLY DAILY PRN Constipation Budesonide 0.5 mg 06/18/17 19:00 06/22/17 08:53 Pulmicort Inhalation AEROSOL 0.5 mg RTBID JAMAR Administration Bumetanide 1 mg 06/21/17 07:36 Bumex 1 Mg Tab PO DAILY PRN Clotrimazole 10 mg 06/18/17 21:27 06/22/17 14:56 Mycelex Benito MM 10 mg 5XD JAMAR Administration Guaifenesin/Dextromethorphan 1 tab 06/18/17 21:00 06/22/17 09:46 Mucinex Dm PO 1 tab BID JAMAR Administration Hydroxychloroquine Sulfate 400 mg 06/21/17 08:00 06/22/17 09:44 Plaquenil PO 400 mg WB JAMAR Administration Ceftriaxone Sodium 1 g/ Sodium 50 mls @ 100 mls/hr 06/20/17 09:30 06/22/17 10 :53 Chloride IV Infused Q24H JAMAR Infusion Lorazepam 0.5 mg 06/18/17 18:19 06/20/17 19:53 Ativan Inj IVP 0.5 mg Q4H PRN Administration Anxiety/Air hunger/Agitation Magnesium Hydroxide 30 ml 06/18/17 18:19 Mom PO DAILY PRN Constipation Menthol 1 lozenge 06/18/17 18:19 Ricola Sf MM PRN PRN Cough Methylprednisolone Sodium Succinate 80 mg 06/21/17 15:00 06/22/17 14:57 Solu-Medrol IVP 80 mg Q6HR JAMAR Administration Morphine Sulfate 2 mg 06/18/17 18:19 Morphine Sulfate Inj IVP Q2HR PRN Pain Nicotine 1 removal 06/21/17 09:00 Nicotine Patch Removal TD DAILY PRN Nicotine 14 mg 06/20/17 09:00 Nicoderm TD DAILY PRN Cessation/Smoking/Tobacco use Ondansetron HCl 4 mg 06/18/17 18:19 Zofran IVP Q6H PRN Nausea Pharmacy Profile Note 5 ml 06/18/17 21:26 Lidocaine/Maalox/Benadryl Soln PO Q4H PRN Mouth pain Polyethylene Glycol 17 gm 06/21/17 16:00 06/22/17 09:43 Miralax PO Not Given DAILY JAMAR Promethazine HCl/Codeine 5 ml 06/18/17 18:19 06/18/17 21:03 Phenergan + Codeine PO 5 ml Q6HR PRN Administration Cough Senna/Docusate Sodium 1 tab 06/21/17 21:00 06/22/17 09:43 Senna Plus Tablet PO Not Given BID [facility] Sodium Chloride 10 - 80 ml 06/18/17 15:18 06/22/17 13:03 Iv Flush IVF 10 ml PRN PRN Administration [place] Sodium Chloride 2 spray 06/18/17 21:28 06/22/17 13:03 [place] Nasal Moisturizing [place] EA NOSTRIL 2 spray QID [facility] Administration Discontinued Medications Generic Name Dose Route Start Last Admin Trade Name Freq PRN Reason Stop Dose Admin Albuterol/Ipratropium 3 ml 06/18/17 15:02 06/18/17 15:19 Duoneb AEROSOL 06/18/17 15:03 3 ml O ONE Administration Albuterol/Ipratropium 3 ml 06/18/17 17:26 06/18/17 17:36 Duoneb AEROSOL 06/18/17 17:27 3 ml O ONE Administration Albuterol/Ipratropium 3 ml 06/18/17 19:00 06/19/17 11:55 Duoneb AEROSOL 3 ml RTQID JAMAR Administration Furosemide 20 mg 06/22/17 12:37 06/22/17 13:03 Lasix IVP 06/22/17 12:38 20 mg ONCE ONE Administration Hydroxychloroquine Sulfate 200 mg 06/18/17 18:19 06/19/17 09:19 Plaquenil PO Not Given BIDWM [facility] Hydroxychloroquine Sulfate 400 mg 06/20/17 09:00 Plaquenil PO DAILY [facility] Hydroxychloroquine Sulfate 400 mg 06/19/17 09:19 06/20/17 08:25 Plaquenil PO 400 mg DAILY [facility] Administration Sodium Chloride 1,000 mls @ 50 mls/hr 06/18/17 18:19 06/21/17 22:56 1/2 Normal Saline IV Not Given .Q20H [facility] Levalbuterol HCl 1.25 mg 06/18/17 16:06 06/18/17 16:29 Xopenex 1.25mg/3ml AEROSOL 06/18/17 16:07 1.25 mg O ONE Administration Lorazepam 1 mg 06/18/17 18:02 06/18/17 18:09 Ativan Inj IVP 06/18/17 18:03 1 mg O ONE Administration Methylprednisolone Sodium Succinate 125 mg 06/18/17 15:30 06/18/17 15:35 Solu-Medrol IVP 06/18/17 15:31 125 mg O ONE Administration Methylprednisolone Sodium Succinate 125 mg 06/18/17 21:00 06/21/17 09:24 Solu-Medrol IVP 125 mg Q6HR [facility] Administration Nicotine 14 mg 06/19/17 20:55 Nicoderm TD DAILY PRN Cessation/Smoking/Tobacco use Potassium Chloride 10 meq 06/22/17 12:50 06/22/17 13:03 Micro-K 10 Meq Capsule PO 06/22/17 12:51 10 meq O ONE Administration - Constitutional no acute distress, mild distress - Routine Neck Exam Present: supple - Routine Respiratory Exam Present: decreased breath sounds, prolonged expiratory phase, wheezes - Routine Cardiovascular Exam Present: RRR - Routine Abdominal Exam Present: soft, normoactive bowel sounds - Routine Extremities Exam Present: cyanosis, clubbing - Routine Neurological Exam Present: alert, oriented X3 Results - Laboratory Findings Laboratory: Laboratory Results - last 48 hr 06/21/17 06/21/17 06/22/17 06:03 06:03 04:27 WBC 13.7 H 12.5 H RBC 4.61 4.62 Hgb 12.6 12.6 Hct 41.2 40.8 MCV 89.4 88.3 MCH 27.3 27.3 MCHC 30.6 L 30.9 L RDW Std Deviation 45.1 44.7 Plt Count 365 368 MPV 9.4 9.5 Immature Gran % (Auto) Not performed Neut % (Auto) Not performed Lymph % (Auto) Not performed [place] % (Auto) Not performed Eos % (Auto) Not performed Baso % (Auto) Not performed Neut # (Auto) Not performed Lymph # (Auto) Not performed [place] # (Auto) Not performed Eos # (Auto) Not performed Baso # (Auto) Not performed Abs Immat Gran (auto) Not performed Neutrophils % (Manual) 94.0 H 89.0 H Band Neutrophils % 1.0 Lymphocytes % (Manual) 2.0 L 11.0 L Monocytes % (Manual) 3.0 Neutrophils # (Manual) 12.9 H 11.1 H Band Neutrophils # 0.1 Lymphocytes # (Manual) 0.3 L 1.4 Monocytes # (Manual) 0.4 RBC Morph Comment Normal Normal Turbidity < 20 Sodium 144 Potassium 4.2 Chloride 105 Carbon Dioxide 26 Anion Gap 13 BUN 23.0 H Creatinine 0.6 L GFR Calculation 97 BUN/Creatinine Ratio 38 H Glucose 143 H Calculated Osmolality 283 H Calcium 8.7 Total Bilirubin < 0.10 L Icterus Index < 2 AST 29 D ALT 44 Alkaline Phosphatase 79 Total Protein 6.6 Albumin 3.9 Globulin 2.7 Albumin/Globulin Ratio 1.4 Specimen Hemolysis < 15 06/22/17 04:27 WBC RBC Hgb Hct MCV MCH MCHC RDW Std Deviation Plt Count MPV Immature Gran % (Auto) Neut % (Auto) Lymph % (Auto) [place] % (Auto) Eos % (Auto) Baso % (Auto) Neut # (Auto) Lymph # (Auto) [place] # (Auto) Eos # (Auto) Baso # (Auto) Abs Immat Gran (auto) Neutrophils % (Manual) Band Neutrophils % Lymphocytes % (Manual) Monocytes % (Manual) Neutrophils # (Manual) Band Neutrophils # Lymphocytes # (Manual) Monocytes # (Manual) RBC Morph Comment Turbidity < 20 Sodium 144 Potassium 4.2 Chloride 103 Carbon Dioxide 28 Anion Gap 13 BUN 21.0 H Creatinine 0.7 GFR Calculation 81 BUN/Creatinine Ratio 30 H Glucose 129 H Calculated Osmolality 282 H Calcium 8.4 Total Bilirubin Icterus Index < 2 AST ALT Alkaline Phosphatase Total Protein Albumin Globulin Albumin/Globulin Ratio Specimen Hemolysis < 15 - Diagnostic Findings Chest x-ray: report reviewed, image reviewed Assessment and Plan (1) COPD exacerbation Status: Acute Current Visit: Yes - Assessment and Plan Acute Hypoxic Respiratory Failure COPD exacerbation RUL nodule - stable per pt report, awaiting documents from [facility] - on hydroxychloroquine continue albuterol/ipratropium q4H budesonide BID wean methylpred. - Time Spent With Patient Total time spent is greater than 50% in coordination of care (as documented) at patient's floor/unit and/or counseling patient: less than 15 minutes
[2017-06-22] MEDS: METHYLPREDNISOLONE SOD SUCC 40mg/ml INJECTION IVP SCH (22:23)
[2017-06-23] MEDS: SALINE FLUSH 10ml SYRINGE IVF PRN ×4 (03:22→18:14)
[2017-06-23] MEDS: METHYLPREDNISOLONE SOD SUCC 40mg/ml INJECTION IVP SCH ×4 (03:22→20:04)
[2017-06-23] MEDS: ALBUTEROL/IPRATROPIUM 2.5mg-0.5mg/3ml NEB AEROSOL SCH ×6 (03:25→23:20)
[2017-06-23] MEDS: HYDROCODONE/APAP 7.5 MG/325 MG TABLET PO PRN ×3 (05:09→18:12)
[2017-06-23] MEDS: BUDESONIDE INH.SOLN 0.5mg/2ml NEB AEROSOL SCH ×2 (08:46→19:21)
[2017-06-23] MEDS: CLOTRIMAZOLE 10 MG TROCHE MM SCH ×5 (08:53→20:03)
[2017-06-23] MEDS: SENNA + DOCUSATE TABLET PO SCH ×2 (08:53→20:03)
[2017-06-23] MEDS: GUAIFENESIN/D-METHORPHAN 600mg/30mg TABLET PO SCH ×2 (08:53→20:03)
[2017-06-23] MEDS: POLYETHYL GLYCOL 3350 17gm PACKET PO SCH (08:54)
[2017-06-23] MEDS: HYDROXYCHLOROQUINE 200 MG PO SCH (08:54)
[2017-06-23] MEDS: SALINE 0.65% NASAL SPRAY 44 ML BOTTLE EA NOSTRIL SCH ×4 (08:55→20:04)
[2017-06-23] MEDS ORDERED: acetaZOLAMIDE 250 MG TABLET PO ONE ×2 (09:20→16:00)
[2017-06-23] MEDS: CEFTRIAXONE 1 G in NS 50 ML IV SCH (09:58)
--- NOTE | 2017-06-23 10:17 | XRay Report ---
Indication: hypoxia PROCEDURE: XR chest 1V: Encounter: Initial Comparison: June 20, 2017 Findings: Right upper lobe pulmonary nodule is again noted. Lungs are otherwise clear. No pleural effusion or pneumothorax. Heart size and mediastinal contours are stable. Pulmonary vascularity is normal currently. Impression: Resolved pulmonary edema. No focal pneumonia. .
--- NOTE | 2017-06-23 10:33 | Progress Note ---
- Date 06/23/17 Subjective: F/U: COPD exacerbation, Acute hypoxic respiratory insufficiency Doing fair. Still very weak and SOA. Some cough/sputum. Needing O2. Did have increased urine output with Lasix yesterday. Appetite fair-not always eating as food cold by time she gets to it. Strength improving slowly-reports getting up and moving in room. Not dizzy/unsteady when up. Does look tired and weak. Objective Vital signs: Temperature 97.1 F 06/23/17 07:57 Pulse Rate 95 06/23/17 08:00 Respiratory Rate 15 06/23/17 08:47 Blood Pressure 180/80 H 06/23/17 07:57 Pulse Oximetry 92 06/23/17 08:47 Height/Weight/BMI: Height 1.6 m Weight 63.2 kg Body Mass Index 23.9 - Constitutional Present: mild distress, well nourished, well developed, average body habitus, cooperative - Routine HEENT Exam Head: Present: normocephalic, atraumatic Eye: Present: EOMI, PERRL ENT: Present: mucous membranes dry - Routine Respiratory Exam Present: decreased breath sounds, distant breath sounds, diminished air movement - Routine Cardiovascular Exam Present: RRR, no murmur - Routine Abdominal Exam Present: soft, normoactive bowel sounds, non distended, non tender. Absent: guarding - Routine Extremities Exam Present: edema (Trace ), pulses intact. Absent: cyanosis, clubbing - Routine Musculoskeletal Exam Musculoskeletal: Present: no clubbing or cyanosis - Routine Skin Exam Present: dry, warm - Routine Neurological Exam Present: alert, oriented X3, CN II-XII intact, moving all extremities, vision grossly intact, hearing grossly intact, normal speech. Absent: motor deficit, altered mental status - Routine Psychiatric Exam Present: normal affect, normal thought process, cooperative Results - Labs CBC & Chem 7: 06/23/17 04:58 06/23/17 04:58 Microbiology Results: Microbiology 06/20/17 09:48 Peripheral/Iv Start Blood Culture - Preliminary No Growth After 3 Days 06/20/17 09:47 Peripheral/Iv Start Blood Culture - Preliminary No Growth After 3 Days 06/23/17 08:34 Sputum, Expectorated Gram Stain - Final 06/23/17 08:34 Sputum, Expectorated Sputum Culture - Preliminary Culture Initiated - Results Pending 06/22/17 15:18 Sputum, Expectorated Gram Stain - Final 06/22/17 15:18 Sputum, Expectorated Sputum Culture - Final Assessment and Plan (1) COPD exacerbation Current visit: Yes Status: Acute Assessment and Plan: IMPRESSION COPD exacerbation Acute hypoxic respiratory insufficiency Elevated lactate 2.6 on 06/20/2017, possible sepsis Hypernatremia (POA) - resolved Thrush (POA) - Mycelex started 06/18 Anorexia Anxiety secondary to hypoxia Constipation Lung nodule, chronic Mild diastolic dysfunction, preserved EF Mild pulmonary HTN RA GERD Chronic back pain Tobacco dependency Pulmonary debility PLAN Will continue with Rocephin for pulmonary coverage - Day #4. Continue Solu-Medrol and neb treatments. No wheezing, but lungs still very tight sounding. Wean O2 as able. Currently maintaining saturations 92-95% on 2L. Encourage deep breathing. Diamox 500mg given x1 this am as CO2 increase post Lasix yesterday. Will repeat dose this evening. Ambulate QID in room halls to help strength. Discussed with patient about possible Skilled care post discharge to help improve strength prior to going home. Recheck CBC and BMP in am. Time spent with patient care 25 minutes. DVT Prophylaxis: SCD's Resuscitation Status: Do Not Resuscitate - Time spent with patient Time with patient PN: 25 minutes - Physician Narrative Physician: Candido Love MD Narrative: Date: 06/23/17 Time: 1030 Hospital Course Summary Disclaimer: The visit summary below is not to be considered part of the above Progress Note. Hospital Course: 06/18/17 Admit, OBS status, under the hospitalist service. Check respiratory panel. Significant smoking hx; quit approx 9 days ago. Suspect COPD and will treat wheezing as exacerbation of COPD with DuoNeb, Pulmicort, Solu-Medrol 125 Q6h, and Ativan/MS PRN air hunger. Consider consulting Dr. Foster. Hypernatremia - 1/2 NS. Recheck in am. Hold Bumex for now. Request records from [facility] regarding w/u for lung nodule, which pt/spouse ( Simba) report is chronic. Check B12 d/t reddened tongue. Do suspect thrush - start Mycelex and have Swizzle prn stomatitis pain. Consult PT/OT - RN reports gait is unsteady. Thrush - Mycelex. Code status: DNR. 06/19/17 Still with wheezing, decreased air movement, and O2 requirement. Will need to continue high-dose IV steroids and breathing treatments. Change status to inpatient as it's expected to take more than 2 nights to improve her respiratory symptoms. Continue IV Ativan to help with air-hunger (high-risk med). Pt seen by INOCENCIA Montes with Dr. Foster - ABG and BiPAP ordered. [facility] records reviewed - no mention of pulmonary nodule w/u but chart did include diagnosis of COPD. Still awaiting records from [facility]. Hypernatremia - resolved. Decrease rate of fluid to 50 ml/hr. PO intake improving. Could potentially restart Bumex in the next day or two. 06/20/17 Regarding elevated lactate with possible sepsis, will obtain blood cultures 2. Start Rocephin 1 g IV daily. Check urinalysis and chest x-ray now. We'll give a fluid bolus if chest x-ray does not show fluid overload. Repeat lactate. Monitor vitals closely. Continue steroids, breathing treatments, supplemental oxygen, BiPAP as needed. 06/21/17 WBC improved to 13.7 and lactate trended down. BC & sputum pending. Continue Rocephin, day #2. UA was neg for UTI. CXR yesterday revealed mild edema. Steroid dose reduced per pulmonology. Appreciate their expertise. Constipation - start Senna Plus and MiraLAX. Ativan PRN air hunger - received dose last evening. (high risk med). Continue PT /OT. Records received from [facility] and reviewed: Pt actually has b/l pulmonary nodules from records in 2011. She [address] scan of her chest which was suspicious for neoplasm, and then had PET scan which did not meet criteria for cancer. She saw Dr. Pereyra at that time. 06/22/17 Will continue with Rocephin for pulmonary coverage - Day #3. Solu-Medrol decreased by Pulm to 80mg IV q 8 hour. Continue neb treatments. No wheezing, but lungs still very tight sounding. Wean O2 as able. Currently maintaining saturations 92-95% on 2L. Lasix 20mg IV x1 to help decrease edema. Encourage continuation of activities to help strength. 06/23/17 Will continue with Rocephin for pulmonary coverage - Day #4. Continue Solu-Medrol and neb treatments. No wheezing, but lungs still very tight sounding. Wean O2 as able. Currently maintaining saturations 92-95% on 2L. Encourage deep breathing. Diamox 500mg given x1 this am as CO2 increase post Lasix yesterday. Will repeat dose this evening. Ambulate QID in room halls to help strength. Discussed with patient about possible Skilled care post discharge to help improve strength prior to going home.
--- NOTE | 2017-06-23 13:54 | Pulmonology Progress Note ---
Subjective Principal diagnosis: SOB Interval history: Pt in bed, states she has some SOB now, + cough but minimal sputum noted. Exam Vital signs: Temperature 97.1 F 06/23/17 07:57 Pulse Rate 95 06/23/17 08:00 Respiratory Rate 18 06/23/17 12:19 Blood Pressure 180/80 H 06/23/17 07:57 Pulse Oximetry 93 06/23/17 12:19 Inpatient Medications: Generic Name Dose Route Start Last Admin Trade Name Freq PRN Reason Stop Dose Admin Hydrocodone Bitart/Acetaminophen 1 tab 06/18/17 18:19 06/23/17 05:09 [place] 7.5/325 PO 1 tab Q4H PRN Administration Pain Acetazolamide 500 mg 06/23/17 16:00 Diamox PO 06/23/17 16:01 O ONE Albuterol/Ipratropium 3 ml 06/18/17 18:19 Duoneb AEROSOL Q4HR PRN Shortness of air Albuterol/Ipratropium 3 ml 06/19/17 16:00 06/23/17 12:18 Duoneb AEROSOL 3 ml Q4HR JAMAR Administration Bisacodyl 10 mg 06/18/17 18:19 Dulcolax RECTALLY DAILY PRN Constipation Budesonide 0.5 mg 06/18/17 19:00 06/23/17 08:46 Pulmicort Inhalation AEROSOL 0.5 mg RTBID JAMAR Administration Bumetanide 1 mg 06/21/17 07:36 Bumex 1 Mg Tab PO DAILY PRN Clotrimazole 10 mg 06/18/17 21:27 06/23/17 12:51 Mycelex Benito MM 10 mg 5XD JAMAR Administration Guaifenesin/Dextromethorphan 1 tab 06/18/17 21:00 06/23/17 08:53 Mucinex Dm PO 1 tab BID JAMAR Administration Hydroxychloroquine Sulfate 400 mg 06/21/17 08:00 06/23/17 08:54 Plaquenil PO 400 mg WB JAMAR Administration Ceftriaxone Sodium 1 g/ Sodium 50 mls @ 100 mls/hr 06/20/17 09:30 06/23/17 10 :28 Chloride IV Infused Q24H JAMAR Infusion Lorazepam 0.5 mg 06/18/17 18:19 06/20/17 19:53 Ativan Inj IVP 0.5 mg Q4H PRN Administration Anxiety/Air hunger/Agitation Magnesium Hydroxide 30 ml 06/18/17 18:19 Mom PO DAILY PRN Constipation Menthol 1 lozenge 06/18/17 18:19 Ricola Sf MM PRN PRN Cough Methylprednisolone Sodium Succinate 40 mg 06/22/17 21:00 06/23/17 08:53 Solu-Medrol IVP 40 mg Q6HR JAMAR Administration Morphine Sulfate 2 mg 06/18/17 18:19 Morphine Sulfate Inj IVP Q2HR PRN Pain Nicotine 1 removal 06/21/17 09:00 Nicotine Patch Removal TD DAILY PRN Nicotine 14 mg 06/20/17 09:00 Nicoderm TD DAILY PRN Cessation/Smoking/Tobacco use Ondansetron HCl 4 mg 06/18/17 18:19 Zofran IVP Q6H PRN Nausea Pharmacy Profile Note 5 ml 06/18/17 21:26 Lidocaine/Maalox/Benadryl Soln PO Q4H PRN Mouth pain Polyethylene Glycol 17 gm 06/21/17 16:00 06/23/17 08:54 Miralax PO 17 gm DAILY JAMAR Administration Promethazine HCl/Codeine 5 ml 06/18/17 18:19 06/18/17 21:03 Phenergan + Codeine PO 5 ml Q6HR PRN Administration Cough Senna/Docusate Sodium 1 tab 06/21/17 21:00 06/23/17 08:53 Senna Plus Tablet PO 1 tab BID JAMAR Administration Sodium Chloride 10 - 80 ml 06/18/17 15:18 06/23/17 08:53 Iv Flush IVF 10 ml PRN PRN Administration Flushing Sodium Chloride 2 spray 06/18/17 21:28 06/23/17 12:51 Deep Sea Nasal Moisturizing [place] EA NOSTRIL Not Given QID JAMAR Discontinued Medications Generic Name Dose Route Start Last Admin Trade Name Freq PRN Reason Stop Dose Admin Acetazolamide 500 mg 06/23/17 09:20 06/23/17 10:51 Diamox PO 06/23/17 09:21 500 mg O ONE Administration Albuterol/Ipratropium 3 ml 06/18/17 15:02 06/18/17 15:19 Duoneb AEROSOL 06/18/17 15:03 3 ml O ONE Administration Albuterol/Ipratropium 3 ml 06/18/17 17:26 06/18/17 17:36 Duoneb AEROSOL 06/18/17 17:27 3 ml O ONE Administration Albuterol/Ipratropium 3 ml 06/18/17 19:00 06/19/17 11:55 Duoneb AEROSOL 3 ml RTQID JAMAR Administration Furosemide 20 mg 06/22/17 12:37 06/22/17 13:03 Lasix IVP 06/22/17 12:38 20 mg ONCE ONE Administration Hydroxychloroquine Sulfate 200 mg 06/18/17 18:19 06/19/17 09:19 Plaquenil PO Not Given BIDWM JAMAR Hydroxychloroquine Sulfate 400 mg 06/20/17 09:00 Plaquenil PO DAILY [facility] Hydroxychloroquine Sulfate 400 mg 06/19/17 09:19 06/20/17 08:25 Plaquenil PO 400 mg DAILY JAMAR Administration Sodium Chloride 1,000 mls @ 50 mls/hr 06/18/17 18:19 06/21/17 22:56 1/2 Normal Saline IV Not Given .Q20H [facility] Levalbuterol HCl 1.25 mg 06/18/17 16:06 06/18/17 16:29 Xopenex 1.25mg/3ml AEROSOL 06/18/17 16:07 1.25 mg O ONE Administration Lorazepam 1 mg 06/18/17 18:02 06/18/17 18:09 Ativan Inj IVP 06/18/17 18:03 1 mg O ONE Administration Methylprednisolone Sodium Succinate 125 mg 06/18/17 15:30 06/18/17 15:35 Solu-Medrol IVP 06/18/17 15:31 125 mg O ONE Administration Methylprednisolone Sodium Succinate 125 mg 06/18/17 21:00 06/21/17 09:24 Solu-Medrol IVP 125 mg Q6HR JAMAR Administration Methylprednisolone Sodium Succinate 80 mg 06/21/17 15:00 06/22/17 14:57 Solu-Medrol IVP 80 mg Q6HR JAMAR Administration Nicotine 14 mg 06/19/17 20:55 Nicoderm TD DAILY PRN Cessation/Smoking/Tobacco use Potassium Chloride 10 meq 06/22/17 12:50 06/22/17 13:03 Micro-K 10 Meq Capsule PO 06/22/17 12:51 10 meq O ONE Administration - Constitutional mild distress, well nourished, average body habitus, cooperative - Routine HEENT Exam Head: Present: normocephalic, atraumatic Eye: Present: EOMI, PERRL ENT: Present: mucous membranes moist - Routine Neck Exam Present: supple, full ROM, trachea midline - Routine Respiratory Exam Present: decreased breath sounds, wheezes. Absent: patient mechanically ventilated - Routine Cardiovascular Exam Present: RRR, S1, S2, no murmur - Routine Abdominal Exam Present: soft, normoactive bowel sounds - Routine Extremities Exam Present: no edema, non tender, full ROM - Routine Back/Spine/Pelvis Exam Back/Spine: Present: full ROM - Routine Skin Exam Present: intact, dry - Routine Neurological Exam Present: alert, oriented X3, CN II-XII intact - Routine Psychiatric Exam Present: normal affect, normal thought process Results - Laboratory Findings Laboratory: Laboratory Results - last 48 hr 06/22/17 06/22/17 06/23/17 04:27 04:27 04:58 WBC 12.5 H 9.5 RBC 4.62 4.90 Hgb 12.6 13.6 Hct 40.8 43.3 MCV 88.3 88.4 MCH 27.3 27.8 MCHC 30.9 L 31.4 RDW Std Deviation 44.7 45.4 Plt Count 368 341 MPV 9.5 9.8 Immature Gran % (Auto) Not performed 1.0 H Neut % (Auto) Not performed 83.8 H Lymph % (Auto) Not performed 9.1 L [place] % (Auto) Not performed 6.0 Eos % (Auto) Not performed 0.0 Baso % (Auto) Not performed 0.1 Neut # (Auto) Not performed 7.9 H Lymph # (Auto) Not performed 0.9 L [place] # (Auto) Not performed 0.6 Eos # (Auto) Not performed 0.0 Baso # (Auto) Not performed 0.0 Abs Immat Gran (auto) Not performed 0.09 H Neutrophils % (Manual) 89.0 H Lymphocytes % (Manual) 11.0 L Neutrophils # (Manual) 11.1 H Lymphocytes # (Manual) 1.4 RBC Morph Comment Normal Turbidity < 20 Sodium 144 Potassium 4.2 Chloride 103 Carbon Dioxide 28 Anion Gap 13 BUN 21.0 H Creatinine 0.7 GFR Calculation 81 BUN/Creatinine Ratio 30 H Glucose 129 H Calculated Osmolality 282 H Calcium 8.4 Icterus Index < 2 Specimen Hemolysis < 15 06/23/17 04:58 WBC RBC Hgb Hct MCV MCH MCHC RDW Std Deviation Plt Count MPV Immature Gran % (Auto) Neut % (Auto) Lymph % (Auto) [place] % (Auto) Eos % (Auto) Baso % (Auto) Neut # (Auto) Lymph # (Auto) [place] # (Auto) Eos # (Auto) Baso # (Auto) Abs Immat Gran (auto) Neutrophils % (Manual) Lymphocytes % (Manual) Neutrophils # (Manual) Lymphocytes # (Manual) RBC Morph Comment Turbidity < 20 Sodium 141 Potassium 4.4 Chloride 99 Carbon Dioxide 31 H Anion Gap 11 BUN 34.0 H D Creatinine 0.7 GFR Calculation 81 BUN/Creatinine Ratio 49 H Glucose 142 H Calculated Osmolality 281 H Calcium 8.6 Icterus Index < 2 Specimen Hemolysis < 15 Assessment and Plan - Assessment and Plan Acute Hypoxic Respiratory Failure COPD exacerbation RUL nodule - stable per pt report, awaiting documents from [facility] - on hydroxychloroquine Plan: Pt currently on O2 at 2L per [place], sats stable, not using bipap. Cont on BT's with A/A q4H, budesonide BID and methylpred 40mg q6hr. Cont to follow closely, CXR yesterday without infiltrates noted.. - Time Spent With Patient Total time spent is greater than 50% in coordination of care (as documented) at patient's floor/unit and/or counseling patient: less than 15 minutes
[2017-06-24] MEDS: METHYLPREDNISOLONE SOD SUCC 40mg/ml INJECTION IVP SCH ×3 (03:07→20:04)
[2017-06-24] MEDS: HYDROCODONE/APAP 7.5 MG/325 MG TABLET PO PRN ×4 (03:12→20:06)
[2017-06-24] MEDS: ALBUTEROL/IPRATROPIUM 2.5mg-0.5mg/3ml NEB AEROSOL SCH ×6 (04:30→23:40)
[2017-06-24] MEDS: BUDESONIDE INH.SOLN 0.5mg/2ml NEB AEROSOL SCH ×2 (07:42→19:53)
[2017-06-24] MEDS: CLOTRIMAZOLE 10 MG TROCHE MM SCH ×5 (09:15→20:04)
[2017-06-24] MEDS: GUAIFENESIN/D-METHORPHAN 600mg/30mg TABLET PO SCH ×2 (09:15→20:04)
[2017-06-24] MEDS: SALINE 0.65% NASAL SPRAY 44 ML BOTTLE EA NOSTRIL SCH ×4 (09:15→20:04)
[2017-06-24] MEDS: POLYETHYL GLYCOL 3350 17gm PACKET PO SCH (09:16)
[2017-06-24] MEDS: CEFTRIAXONE 1 G in NS 50 ML IV SCH (09:16)
[2017-06-24] MEDS: SENNA + DOCUSATE TABLET PO SCH ×2 (09:16→20:04)
[2017-06-24] MEDS: SALINE FLUSH 10ml SYRINGE IVF PRN ×2 (09:17→20:05)
[2017-06-24] MEDS: HYDROXYCHLOROQUINE 200 MG PO SCH (09:17)
--- NOTE | 2017-06-24 11:59 | Pulmonology Progress Note ---
Subjective Principal diagnosis: SOB Interval history: Pt in chair, states her breathing is doing ok today. Some cough and sputum noted. Ambulated in halls with PT. Exam Vital signs: Temperature 97.1 F 06/24/17 07:29 Pulse Rate 78 06/24/17 07:29 Respiratory Rate 16 06/24/17 11:13 Blood Pressure 146/85 H 06/24/17 07:29 Pulse Oximetry 92 06/24/17 11:13 Inpatient Medications: Generic Name Dose Route Start Last Admin Trade Name Freq PRN Reason Stop Dose Admin Hydrocodone Bitart/Acetaminophen 1 tab 06/18/17 18:19 06/24/17 09:16 [place] 7.5/325 PO 1 tab Q4H PRN Administration Pain Albuterol/Ipratropium 3 ml 06/18/17 18:19 Duoneb AEROSOL Q4HR PRN Shortness of air Albuterol/Ipratropium 3 ml 06/19/17 16:00 06/24/17 11:13 Duoneb AEROSOL 3 ml Q4HR JAMAR Administration Bisacodyl 10 mg 06/18/17 18:19 Dulcolax RECTALLY DAILY PRN Constipation Budesonide 0.5 mg 06/18/17 19:00 06/24/17 07:42 Pulmicort Inhalation AEROSOL 0.5 mg RTBID JAMAR Administration Bumetanide 1 mg 06/21/17 07:36 Bumex 1 Mg Tab PO DAILY PRN Clotrimazole 10 mg 06/18/17 21:27 06/24/17 09:15 Mycelex Benito MM 10 mg 5XD JAMAR Administration Guaifenesin/Dextromethorphan 1 tab 06/18/17 21:00 06/24/17 09:15 Mucinex Dm PO 1 tab BID JAMAR Administration Hydroxychloroquine Sulfate 400 mg 06/21/17 08:00 06/24/17 09:17 Plaquenil PO 400 mg WB JAMAR Administration Ceftriaxone Sodium 1 g/ Sodium 50 mls @ 100 mls/hr 06/20/17 09:30 06/24/17 09 :16 Chloride IV 100 mls/hr Q24H JAMAR Administration Lorazepam 0.5 mg 06/18/17 18:19 06/20/17 19:53 Ativan Inj IVP 0.5 mg Q4H PRN Administration Anxiety/Air hunger/Agitation Magnesium Hydroxide 30 ml 06/18/17 18:19 Mom PO DAILY PRN Constipation Menthol 1 lozenge 06/18/17 18:19 Ricola Sf MM PRN PRN Cough Methylprednisolone Sodium Succinate 40 mg 06/22/17 21:00 06/24/17 09:16 Solu-Medrol IVP 40 mg Q6HR JAMAR Administration Morphine Sulfate 2 mg 06/18/17 18:19 06/23/17 18:13 Morphine Sulfate Inj IVP 2 mg Q2HR PRN Administration Pain Nicotine 1 removal 06/21/17 09:00 Nicotine Patch Removal TD DAILY PRN Nicotine 14 mg 06/20/17 09:00 Nicoderm TD DAILY PRN Cessation/Smoking/Tobacco use Ondansetron HCl 4 mg 06/18/17 18:19 Zofran IVP Q6H PRN Nausea Pharmacy Profile Note 5 ml 06/18/17 21:26 Lidocaine/Maalox/Benadryl Soln PO Q4H PRN Mouth pain Polyethylene Glycol 17 gm 06/21/17 16:00 06/24/17 09:16 Miralax PO 17 gm DAILY JAMAR Administration Promethazine HCl/Codeine 5 ml 06/18/17 18:19 06/18/17 21:03 Phenergan + Codeine PO 5 ml Q6HR PRN Administration Cough Senna/Docusate Sodium 1 tab 06/21/17 21:00 06/24/17 09:16 Senna Plus Tablet PO 1 tab BID JAMAR Administration Sodium Chloride 10 - 80 ml 06/18/17 15:18 06/24/17 09:17 Iv Flush IVF 20 ml PRN PRN Administration Flushing Sodium Chloride 2 spray 06/18/17 21:28 06/24/17 09:15 Deep [place] Nasal Moisturizing [place] EA NOSTRIL 2 spray QID JAMAR Administration Discontinued Medications Generic Name Dose Route Start Last Admin Trade Name Freq PRN Reason Stop Dose Admin Acetazolamide 500 mg 06/23/17 09:20 06/23/17 10:51 Diamox PO 06/23/17 09:21 500 mg O ONE Administration Acetazolamide 500 mg 06/23/17 16:00 06/23/17 15:50 Diamox PO 06/23/17 16:01 500 mg O ONE Administration Albuterol/Ipratropium 3 ml 06/18/17 15:02 06/18/17 15:19 Duoneb AEROSOL 06/18/17 15:03 3 ml O ONE Administration Albuterol/Ipratropium 3 ml 06/18/17 17:26 06/18/17 17:36 Duoneb AEROSOL 06/18/17 17:27 3 ml O ONE Administration Albuterol/Ipratropium 3 ml 06/18/17 19:00 06/19/17 11:55 Duoneb AEROSOL 3 ml RTQID [facility] Administration Furosemide 20 mg 06/22/17 12:37 06/22/17 13:03 Lasix IVP 06/22/17 12:38 20 mg ONCE ONE Administration Hydroxychloroquine Sulfate 200 mg 06/18/17 18:19 06/19/17 09:19 Plaquenil PO Not Given BIDWM JAMAR Hydroxychloroquine Sulfate 400 mg 06/20/17 09:00 Plaquenil PO DAILY [facility] Hydroxychloroquine Sulfate 400 mg 06/19/17 09:19 06/20/17 08:25 Plaquenil PO 400 mg DAILY [facility] Administration Sodium Chloride 1,000 mls @ 50 mls/hr 06/18/17 18:19 06/21/17 22:56 1/2 Normal Saline IV Not Given .Q20H [facility] Levalbuterol HCl 1.25 mg 06/18/17 16:06 06/18/17 16:29 Xopenex 1.25mg/3ml AEROSOL 06/18/17 16:07 1.25 mg O ONE Administration Lorazepam 1 mg 06/18/17 18:02 06/18/17 18:09 Ativan Inj IVP 06/18/17 18:03 1 mg O ONE Administration Methylprednisolone Sodium Succinate 125 mg 06/18/17 15:30 06/18/17 15:35 Solu-Medrol IVP 06/18/17 15:31 125 mg O ONE Administration Methylprednisolone Sodium Succinate 125 mg 06/18/17 21:00 06/21/17 09:24 Solu-Medrol IVP 125 mg Q6HR JAMAR Administration Methylprednisolone Sodium Succinate 80 mg 06/21/17 15:00 06/22/17 14:57 Solu-Medrol IVP 80 mg Q6HR JAMAR Administration Nicotine 14 mg 06/19/17 20:55 Nicoderm TD DAILY PRN Cessation/Smoking/Tobacco use Potassium Chloride 10 meq 06/22/17 12:50 06/22/17 13:03 Micro-K 10 Meq Capsule PO 06/22/17 12:51 10 meq O ONE Administration - Constitutional no acute distress, average body habitus, cooperative - Routine HEENT Exam Head: Present: normocephalic, atraumatic Eye: Present: EOMI, PERRL ENT: Present: mucous membranes moist - Routine Neck Exam Present: supple, full ROM, trachea midline - Routine Respiratory Exam Present: decreased breath sounds. Absent: accessory muscle use, patient mechanically ventilated - Routine Cardiovascular Exam Present: RRR, S1, S2, no murmur - Routine Abdominal Exam Present: soft, normoactive bowel sounds - Routine Extremities Exam Present: no edema, non tender, full ROM - Routine Back/Spine/Pelvis Exam Back/Spine: Present: full ROM - Routine Skin Exam Present: intact, dry - Routine Neurological Exam Present: alert, oriented X3, CN II-XII intact - Routine Psychiatric Exam Present: normal affect, normal thought process Results - Laboratory Findings Laboratory: Laboratory Results - last 48 hr 06/23/17 06/23/17 06/24/17 04:58 04:58 04:51 WBC 9.5 9.8 RBC 4.90 4.99 Hgb 13.6 13.6 Hct 43.3 44.1 MCV 88.4 88.4 MCH 27.8 27.3 MCHC 31.4 30.8 L RDW Std Deviation 45.4 46.0 Plt Count 341 393 MPV 9.8 9.9 Immature Gran % (Auto) 1.0 H 1.0 H Neut % (Auto) 83.8 H 84.2 H Lymph % (Auto) 9.1 L 8.6 L [place] % (Auto) 6.0 6.1 Eos % (Auto) 0.0 0.1 Baso % (Auto) 0.1 0.0 Neut # (Auto) 7.9 H 8.2 H Lymph # (Auto) 0.9 L 0.8 L [place] # (Auto) 0.6 0.6 Eos # (Auto) 0.0 0.0 Baso # (Auto) 0.0 0.0 Abs Immat Gran (auto) 0.09 H 0.10 H Turbidity < 20 Sodium 141 Potassium 4.4 Chloride 99 Carbon Dioxide 31 H Anion Gap 11 BUN 34.0 H D Creatinine 0.7 GFR Calculation 81 BUN/Creatinine Ratio 49 H Glucose 142 H Calculated Osmolality 281 H Calcium 8.6 Magnesium Icterus Index < 2 Specimen Hemolysis < 15 06/24/17 04:51 WBC RBC Hgb Hct MCV MCH MCHC RDW Std Deviation Plt Count MPV Immature Gran % (Auto) Neut % (Auto) Lymph % (Auto) [place] % (Auto) Eos % (Auto) Baso % (Auto) Neut # (Auto) Lymph # (Auto) [place] # (Auto) Eos # (Auto) Baso # (Auto) Abs Immat Gran (auto) Turbidity < 20 Sodium 141 Potassium 4.5 Chloride 104 Carbon Dioxide 24 Anion Gap 13 BUN 33.0 H Creatinine 0.9 D GFR Calculation 61 BUN/Creatinine Ratio 37 H Glucose 125 H Calculated Osmolality 279 Calcium 8.6 Magnesium 2.4 H Icterus Index < 2 Specimen Hemolysis < 15 Assessment and Plan - Assessment and Plan Acute Hypoxic Respiratory Failure COPD exacerbation RUL nodule - stable per pt report, awaiting documents from [facility] - on hydroxychloroquine Plan: Pt currently on RA and doing well, not using bipap. On BT's with A/A q4H, budesonide BID and methylpred 40mg q6hr, wean to q12. Cont to follow closely, last CXR without infiltrates noted. - Time Spent With Patient Total time spent is greater than 50% in coordination of care (as documented) at patient's floor/unit and/or counseling patient: less than 15 minutes
--- NOTE | 2017-06-24 16:39 | Progress Note ---
- Date 06/24/17 Subjective: Abida was sleeping the first two times I tried to visit with her. She was up watching TV by around 1630. While her breathing is getting better, she feels very tired and fatigued. She feels like she needs to sleep all the time. She states that her appetite is "too good" which she attributes to the steroids. She denies n/v. She was ambulating through the halls without oxygen earlier today but when she got back to her room it had to be re-applied. She is really nervous and scared to go back home -- she's worried about her breathing. Objective Vital signs: Temperature 96.7 F L 06/24/17 14:33 Pulse Rate 88 06/24/17 14:28 Respiratory Rate 24 06/24/17 14:47 Blood Pressure 135/71 06/24/17 14:28 Pulse Oximetry 93 06/24/17 14:47 Height/Weight/BMI: Height 1.6 m Weight 60.7 kg Body Mass Index 23.9 - Constitutional Present: no acute distress, well nourished, well developed, thin - Routine HEENT Exam Eye: Absent: conjunctival icterus, scleral injection - Routine Respiratory Exam Present: decreased breath sounds, diminished air movement Comments: mild conversational dyspnea - Routine Cardiovascular Exam Present: RRR, S1, S2 - Routine Abdominal Exam Present: soft, normoactive bowel sounds, non tender - Routine Extremities Exam Present: no edema - Routine Skin Exam Present: intact, dry, warm - Routine Neurological Exam Present: alert, oriented X3, normal speech - Routine Psychiatric Exam Present: normal affect, normal thought process, cooperative Results - Labs CBC & Chem 7: 06/24/17 04:51 06/24/17 04:51 Microbiology Results: Microbiology 06/20/17 09:48 Peripheral/Iv Start Blood Culture - Preliminary No Growth After 4 Days 06/20/17 09:47 Peripheral/Iv Start Blood Culture - Preliminary No Growth After 4 Days 06/23/17 08:34 Sputum, Expectorated Gram Stain - Final 06/23/17 08:34 Sputum, Expectorated Sputum Culture - Preliminary No Growth After 1 Day 06/22/17 15:18 Sputum, Expectorated Gram Stain - Final 06/22/17 15:18 Sputum, Expectorated Sputum Culture - Final Assessment and Plan (1) COPD exacerbation Current visit: Yes Status: Acute Assessment and Plan: IMPRESSION COPD exacerbation Acute hypoxic respiratory insufficiency Elevated lactate 2.6 on 06/20/2017, possible sepsis Hypernatremia (POA) - resolved Thrush (POA) - Mycelex started 06/18 Anorexia Anxiety secondary to hypoxia Constipation Lung nodule, chronic Mild diastolic dysfunction, preserved EF Mild pulmonary HTN RA GERD Chronic back pain Tobacco dependency Pulmonary debility PLAN Continue Rocephin, day #5. Discussed treatment with Marzena Bettencourt APRN -- change IV steroids to q12 today then plan on transitioning to prednisone in am if she's still doing well. Likely will need ambulatory oximetry prior to discharge. Has been declining PT/OT services. She's not particularly interested in SNF. Labs remain stable. DVT Prophylaxis: SCD's Resuscitation Status: Do Not Resuscitate - Time spent with patient Time with patient PN: 25 minutes - Physician Narrative Physician: Candido Love MD Narrative: Date: 06/24/17 Time: 1636 Have independently interviewed and examined pt. Chart reviewed. Case discussed with CM and my CLIENT SERVER PROGRAMMER. Care plan developed with my supervision; agree with above. Making gains-breathing improving, but still feels very SOA and congested. Less cough. Does feel breathing better when on O2. Ambulating in halls to help her strength. Trying to do everything she can to get better. Appetite okay. No nausea. Less mouth pain. Lungs: decreased air movement. Less distress. CV: regular MSE: awake alert appropriate Plan: Continue Rocephin for pulmonary coverage. Steroids being weaned. Continue breathing treatments. Encourage continued strengthening. Weaning O2. Patient determined to stop smoking-encouraged her strongly towards this end. Hospital Course Summary Disclaimer: The visit summary below is not to be considered part of the above Progress Note. Hospital Course: 06/18/17 Admit, OBS status, under the hospitalist service. Check respiratory panel. Significant smoking hx; quit approx 9 days ago. Suspect COPD and will treat wheezing as exacerbation of COPD with DuoNeb, Pulmicort, Solu-Medrol 125 Q6h, and Ativan/MS PRN air hunger. Consider consulting Dr. Foster. Hypernatremia - 1/2 NS. Recheck in am. Hold Bumex for now. Request records from [facility] regarding w/u for lung nodule, which pt/spouse ( Simba) report is chronic. Check B12 d/t reddened tongue. Do suspect thrush - start Mycelex and have Swizzle prn stomatitis pain. Consult PT/OT - RN reports gait is unsteady. Thrush - Mycelex. Code status: DNR. 06/19/17 Still with wheezing, decreased air movement, and O2 requirement. Will need to continue high-dose IV steroids and breathing treatments. Change status to inpatient as it's expected to take more than 2 nights to improve her respiratory symptoms. Continue IV Ativan to help with air-hunger (high-risk med). Pt seen by INOCENCIA Montes with Dr. Foster - PEDRITO and BiPAP ordered. [facility] records reviewed - no mention of pulmonary nodule w/u but chart did include diagnosis of COPD. Still awaiting records from [facility]. Hypernatremia - resolved. Decrease rate of fluid to 50 ml/hr. PO intake improving. Could potentially restart Bumex in the next day or two. 06/20/17 Regarding elevated lactate with possible sepsis, will obtain blood cultures 2. Start Rocephin 1 g IV daily. Check urinalysis and chest x-ray now. We'll give a fluid bolus if chest x-ray does not show fluid overload. Repeat lactate. Monitor vitals closely. Continue steroids, breathing treatments, supplemental oxygen, BiPAP as needed. 06/21/17 WBC improved to 13.7 and lactate trended down. BC & sputum pending. Continue Rocephin, day #2. UA was neg for UTI. CXR yesterday revealed mild edema. Steroid dose reduced per pulmonology. Appreciate their expertise. Constipation - start Senna Plus and MiraLAX. Ativan PRN air hunger - received dose last evening. (high risk med). Continue PT /OT. Records received from [facility] and reviewed: Pt actually has b/l pulmonary nodules from records in [address]. She [address] CT scan of her chest which was suspicious for neoplasm, and then had PET scan which did not meet criteria for cancer. She saw Dr. Pereyra at that time. 06/22/17 Will continue with Rocephin for pulmonary coverage - Day #3. Solu-Medrol decreased by Pulm to 80mg IV q 8 hour. Continue neb treatments. No wheezing, but lungs still very tight sounding. Wean O2 as able. Currently maintaining saturations 92-95% on 2L. Lasix 20mg IV x1 to help decrease edema. Encourage continuation of activities to help strength. 06/23/17 Will continue with Rocephin for pulmonary coverage - Day #4. Continue Solu-Medrol and neb treatments. No wheezing, but lungs still very tight sounding. Wean O2 as able. Currently maintaining saturations 92-95% on 2L. Encourage deep breathing. Diamox 500mg given x1 this am as CO2 increase post Lasix yesterday. Will repeat dose this evening. Ambulate QID in room halls to help strength. Discussed with patient about possible Skilled care post discharge to help improve strength prior to going home. 06/24/17 Continue Rocephin, day #5. Discussed treatment with Marzena Bettencourt APRN -- change IV steroids to q12 today then plan on transitioning to prednisone in am if she's still doing well. Likely will need ambulatory oximetry prior to discharge. Has been declining PT/OT services. She's not particularly interested in SNF. Labs remain stable.
[2017-06-25] MEDS: ALBUTEROL/IPRATROPIUM 2.5mg-0.5mg/3ml NEB AEROSOL SCH ×6 (03:40→23:12)
[2017-06-25] MEDS: HYDROCODONE/APAP 7.5 MG/325 MG TABLET PO PRN ×3 (06:46→19:22)
[2017-06-25] MEDS: SALINE 0.65% NASAL SPRAY 44 ML BOTTLE EA NOSTRIL SCH ×3 (09:13→17:24)
[2017-06-25] MEDS: METHYLPREDNISOLONE SOD SUCC 40mg/ml INJECTION IVP SCH (09:14)
[2017-06-25] MEDS: HYDROXYCHLOROQUINE 200 MG PO SCH (09:15)
[2017-06-25] MEDS: CLOTRIMAZOLE 10 MG TROCHE MM SCH ×5 (09:15→20:22)
[2017-06-25] MEDS: SENNA + DOCUSATE TABLET PO SCH ×2 (09:15→20:22)
[2017-06-25] MEDS: GUAIFENESIN/D-METHORPHAN 600mg/30mg TABLET PO SCH ×2 (09:15→20:22)
[2017-06-25] MEDS: POLYETHYL GLYCOL 3350 17gm PACKET PO SCH (09:15)
[2017-06-25] MEDS: CEFTRIAXONE 1 G in NS 50 ML IV SCH (09:16)
[2017-06-25] MEDS: BUDESONIDE INH.SOLN 0.5mg/2ml NEB AEROSOL SCH ×2 (10:38→19:53)
--- NOTE | 2017-06-25 16:00 | Pulmonology Progress Note ---
Subjective Principal diagnosis: SOB Interval history: still very wheezy and short of breath. does not take O2 at home, does not take BIPAP at home. still with severe coughing, minimal sputum Exam Vital signs: Temperature 97.4 F 06/25/17 15:22 Pulse Rate 82 06/25/17 15:22 Respiratory Rate 22 06/25/17 15:22 Blood Pressure 118/63 06/25/17 15:22 Pulse Oximetry 96 06/25/17 15:22 Inpatient Medications: Generic Name Dose Route Start Last Admin Trade Name Freq PRN Reason Stop Dose Admin Hydrocodone Bitart/Acetaminophen 1 tab 06/18/17 18:19 06/25/17 12:11 [place] 7.5/325 PO 1 tab Q4H PRN Administration Pain Albuterol/Ipratropium 3 ml 06/18/17 18:19 Duoneb AEROSOL Q4HR PRN Shortness of air Albuterol/Ipratropium 3 ml 06/19/17 16:00 06/25/17 15:21 Duoneb AEROSOL 3 ml Q4HR JAMAR Administration Bisacodyl 10 mg 06/18/17 18:19 Dulcolax RECTALLY DAILY PRN Constipation Budesonide 0.5 mg 06/18/17 19:00 06/25/17 10:38 Pulmicort Inhalation AEROSOL Not Given RTBID JAMAR Bumetanide 1 mg 06/21/17 07:36 Bumex 1 Mg Tab PO DAILY PRN Clotrimazole 10 mg 06/18/17 21:27 06/25/17 14:08 Mycelex Benito MM 10 mg 5XD JAMAR Administration Guaifenesin/Dextromethorphan 1 tab 06/18/17 21:00 06/25/17 09:15 Mucinex Dm PO 1 tab BID JAMAR Administration Hydroxychloroquine Sulfate 400 mg 06/21/17 08:00 06/25/17 09:15 Plaquenil PO 400 mg WB JAMAR Administration Ceftriaxone Sodium 1 g/ Sodium 50 mls @ 100 mls/hr 06/20/17 09:30 06/25/17 09 :46 Chloride IV Infused Q24H JAMAR Infusion Lorazepam 0.5 mg 06/18/17 18:19 06/20/17 19:53 Ativan Inj IVP 0.5 mg Q4H PRN Administration Anxiety/Air hunger/Agitation Magnesium Hydroxide 30 ml 06/18/17 18:19 Mom PO DAILY PRN Constipation Menthol 1 lozenge 06/18/17 18:19 Ricola Sf MM PRN PRN Cough Methylprednisolone Sodium Succinate 40 mg 06/24/17 21:00 06/25/17 09:14 Solu-Medrol IVP 40 mg Q12HR JAMAR Administration Morphine Sulfate 2 mg 06/18/17 18:19 06/23/17 18:13 Morphine Sulfate Inj IVP 2 mg Q2HR PRN Administration Pain Nicotine 1 removal 06/21/17 09:00 Nicotine Patch Removal TD DAILY PRN Nicotine 14 mg 06/20/17 09:00 Nicoderm TD DAILY PRN Cessation/Smoking/Tobacco use Ondansetron HCl 4 mg 06/18/17 18:19 Zofran IVP Q6H PRN Nausea Pharmacy Profile Note 5 ml 06/18/17 21:26 Lidocaine/Maalox/Benadryl Soln PO Q4H PRN Mouth pain Polyethylene Glycol 17 gm 06/21/17 16:00 06/25/17 09:15 Miralax PO 17 gm DAILY JAMAR Administration Promethazine HCl/Codeine 5 ml 06/18/17 18:19 06/18/17 21:03 Phenergan + Codeine PO 5 ml Q6HR PRN Administration Cough Senna/Docusate Sodium 1 tab 06/21/17 21:00 06/25/17 09:15 Senna Plus Tablet PO 1 tab BID JAMAR Administration Sodium Chloride 10 - 80 ml 06/18/17 15:18 06/24/17 20:05 Iv Flush IVF 10 ml PRN PRN Administration Flushing Sodium Chloride 2 spray 06/18/17 21:28 06/25/17 12:11 Deep [place] Nasal Moisturizing [place] EA NOSTRIL 2 spray QID JAMAR Administration Discontinued Medications Generic Name Dose Route Start Last Admin Trade Name Freq PRN Reason Stop Dose Admin Acetazolamide 500 mg 06/23/17 09:20 06/23/17 10:51 Diamox PO 06/23/17 09:21 500 mg O ONE Administration Acetazolamide 500 mg 06/23/17 16:00 06/23/17 15:50 Diamox PO 06/23/17 16:01 500 mg O ONE Administration Albuterol/Ipratropium 3 ml 06/18/17 15:02 06/18/17 15:19 Duoneb AEROSOL 06/18/17 15:03 3 ml O ONE Administration Albuterol/Ipratropium 3 ml 06/18/17 17:26 06/18/17 17:36 Duoneb AEROSOL 06/18/17 17:27 3 ml O ONE Administration Albuterol/Ipratropium 3 ml 06/18/17 19:00 06/19/17 11:55 Duoneb AEROSOL 3 ml RTQID JAMAR Administration Furosemide 20 mg 06/22/17 12:37 06/22/17 13:03 Lasix IVP 06/22/17 12:38 20 mg ONCE ONE Administration Hydroxychloroquine Sulfate 200 mg 06/18/17 18:19 06/19/17 09:19 Plaquenil PO Not Given BIDWM [facility] Hydroxychloroquine Sulfate 400 mg 06/20/17 09:00 Plaquenil PO DAILY [facility] Hydroxychloroquine Sulfate 400 mg 06/19/17 09:19 06/20/17 08:25 Plaquenil PO 400 mg DAILY [facility] Administration Sodium Chloride 1,000 mls @ 50 mls/hr 06/18/17 18:19 06/21/17 22:56 1/2 Normal Saline IV Not Given .Q20H [facility] Levalbuterol HCl 1.25 mg 06/18/17 16:06 06/18/17 16:29 Xopenex 1.25mg/3ml AEROSOL 06/18/17 16:07 1.25 mg O ONE Administration Lorazepam 1 mg 06/18/17 18:02 06/18/17 18:09 Ativan Inj IVP 06/18/17 18:03 1 mg O ONE Administration Methylprednisolone Sodium Succinate 125 mg 06/18/17 15:30 06/18/17 15:35 Solu-Medrol IVP 06/18/17 15:31 125 mg O ONE Administration Methylprednisolone Sodium Succinate 125 mg 06/18/17 21:00 06/21/17 09:24 Solu-Medrol IVP 125 mg Q6HR JAMAR Administration Methylprednisolone Sodium Succinate 80 mg 06/21/17 15:00 06/22/17 14:57 Solu-Medrol IVP 80 mg Q6HR JAMAR Administration Methylprednisolone Sodium Succinate 40 mg 06/22/17 21:00 06/24/17 09:16 Solu-Medrol IVP 40 mg Q6HR JAMAR Administration Nicotine 14 mg 06/19/17 20:55 Nicoderm TD DAILY PRN Cessation/Smoking/Tobacco use Potassium Chloride 10 meq 06/22/17 12:50 06/22/17 13:03 Micro-K 10 Meq Capsule PO 06/22/17 12:51 10 meq O ONE Administration - Constitutional no acute distress - Routine HEENT Exam Head: Present: normocephalic, atraumatic Eye: Absent: conjunctival icterus - Routine Neck Exam Present: supple - Routine Respiratory Exam Present: accessory muscle use, decreased breath sounds, prolonged expiratory phase, wheezes - Routine Cardiovascular Exam Present: RRR - Routine Abdominal Exam Present: soft - Routine Extremities Exam Absent: cyanosis, clubbing - Routine Neurological Exam Present: alert, oriented X3 Results - Laboratory Findings Laboratory: Laboratory Results - last 48 hr 06/24/17 06/24/17 06/25/17 04:51 04:51 04:14 WBC 9.8 RBC 4.99 Hgb 13.6 Hct 44.1 MCV 88.4 MCH 27.3 MCHC 30.8 L RDW Std Deviation 46.0 Plt Count 393 MPV 9.9 Immature Gran % (Auto) 1.0 H Neut % (Auto) 84.2 H Lymph % (Auto) 8.6 L Hanson % (Auto) 6.1 Eos % (Auto) 0.1 Baso % (Auto) 0.0 Neut # (Auto) 8.2 H Lymph # (Auto) 0.8 L Hanson # (Auto) 0.6 Eos # (Auto) 0.0 Baso # (Auto) 0.0 Abs Immat Gran (auto) 0.10 H Turbidity < 20 < 20 Sodium 141 141 Potassium 4.5 4.6 Chloride 104 104 Carbon Dioxide 24 26 Anion Gap 13 11 BUN 33.0 H 33.0 H Creatinine 0.9 D 0.8 GFR Calculation 61 70 BUN/Creatinine Ratio 37 H 41 H Glucose 125 H 114 H Calculated Osmolality 279 279 Calcium 8.6 8.4 Magnesium 2.4 H Icterus Index < 2 < 2 Specimen Hemolysis < 15 < 15 Assessment and Plan (1) COPD exacerbation Status: Acute Assessment and plan: She is not as improved as I would expect her to be at this point. I will stop solumedrol and change to moderate dose prednisone. continue neb treatments q4. repeat CXR, BNP, CBC with diff, BMP Current Visit: Yes - Assessment and Plan Acute Hypoxic Respiratory Failure COPD exacerbation RUL nodule - stable per pt report, awaiting documents from Berna RA - on hydroxychloroquine - Time Spent With Patient Total time spent is greater than 50% in coordination of care (as documented) at patient's floor/unit and/or counseling patient: less than 15 minutes
--- NOTE | 2017-06-25 17:04 | Progress Note ---
- Date 06/25/17 Subjective: Abida was resting but easily woke up. She hasn't been able to sleep well - she rests on and off through the night, mostly d/t interruptions. She's more short of breath today, more tired, and more wheezy. She has a nonproductive cough. She denies abd pain or GI c/o and her appetite has been good. Objective Vital signs: Temperature 97.4 F 06/25/17 15:22 Pulse Rate 82 06/25/17 15:22 Respiratory Rate 22 06/25/17 15:22 Blood Pressure 118/63 06/25/17 15:22 Pulse Oximetry 96 06/25/17 15:22 Height/Weight/BMI: Height 1.6 m Weight 61.9 kg Body Mass Index 23.9 - Constitutional Present: mild distress, well nourished, well developed, thin - Routine HEENT Exam Head: Present: normocephalic Eye: Absent: conjunctival icterus, scleral injection - Routine Respiratory Exam Present: decreased breath sounds, prolonged expiratory phase, wheezes - Routine Cardiovascular Exam Present: RRR, S1, S2 - Routine Abdominal Exam Present: soft, normoactive bowel sounds, non distended, non tender - Routine Extremities Exam Present: no edema - Routine Musculoskeletal Exam Musculoskeletal: Present: moving extremities well - Routine Skin Exam Present: intact, dry, warm - Routine Neurological Exam Present: alert, oriented X3, normal speech - Routine Psychiatric Exam Present: normal affect, normal thought process, cooperative Results - Labs CBC & Chem 7: 06/24/17 04:51 06/25/17 04:14 Microbiology Results: Microbiology 06/20/17 09:47 Peripheral/Iv Start Blood Culture - Final No Growth After 5 Days 06/20/17 09:48 Peripheral/Iv Start Blood Culture - Final No Growth After 5 Days 06/23/17 08:34 Sputum, Expectorated Gram Stain - Final 06/23/17 08:34 Sputum, Expectorated Sputum Culture - Final No Growth After 2 Days 06/22/17 15:18 Sputum, Expectorated Gram Stain - Final 06/22/17 15:18 Sputum, Expectorated Sputum Culture - Final Assessment and Plan (1) COPD exacerbation Current visit: Yes Status: Acute Assessment and Plan: IMPRESSION COPD exacerbation Acute hypoxic respiratory insufficiency Elevated lactate 2.6 on 06/20/2017, possible sepsis Hypernatremia (POA) - resolved Thrush (POA) - Mycelex started 06/18 Anorexia Anxiety secondary to hypoxia Constipation Lung nodule, chronic Mild diastolic dysfunction, preserved EF Mild pulmonary HTN RA GERD Chronic back pain Tobacco dependency Pulmonary debility PLAN Increased dyspnea/wheezing today. Dr. Foster ordered repeat CXR now, and CBC, BMP, BNP in am. Continue Rocephin, day #6. Cont Duoneb q4h; cont prednisone per Dr. Foster. BC and sputum cx neg. D/W Dr. Love. DVT Prophylaxis: SCD's Resuscitation Status: Do Not Resuscitate - Time spent with patient Time with patient PN: 25 minutes - Physician Narrative Physician: Candido Love MD Narrative: Date: 06/25/17 Time: 1800 Have independently interviewed and examined pt. Chart reviewed. Case discussed with CM, Pulm, and my [employer]. Care plan developed with my supervision; agree with above. Rougher day-feels more congestion to chest and increasing cough. Not able to mobilize sputum. Chest wall sore from coughing. Harder to be active today with the increased cough. Eating well. Does note some dyspepsia, reports typically feels this with steroids. Bowels moving. Lung: decrease bilaterally, air movement about the same. Frequent horse cough during evaluation. CV: regular MSE: awake alert appropriate Plan: Continue with breathing treatment. Solu-Medrol changed to Prednisone 30mg BID by pulm. Encourage activities as able to help strength. Continues to need O2 , wean as able. Hospital Course Summary Disclaimer: The visit summary below is not to be considered part of the above Progress Note. Hospital Course: 06/18/17 Admit, OBS status, under the hospitalist service. Check respiratory panel. Significant smoking hx; quit approx 9 days ago. Suspect COPD and will treat wheezing as exacerbation of COPD with DuoNeb, Pulmicort, Solu-Medrol 125 Q6h, and Ativan/MS PRN air hunger. Consider consulting Dr. Foster. Hypernatremia - 1/2 NS. Recheck in am. Hold Bumex for now. Request records from [email or web address] regarding w/u for lung nodule, which pt/spouse ( Simba) report is chronic. Check B12 d/t reddened tongue. Do suspect thrush - start Mycelex and have Swizzle prn stomatitis pain. Consult PT/OT - RN reports gait is unsteady. Thrush - Mycelex. Code status: DNR. 06/19/17 Still with wheezing, decreased air movement, and O2 requirement. Will need to continue high-dose IV steroids and breathing treatments. Change status to inpatient as it's expected to take more than 2 nights to improve her respiratory symptoms. Continue IV Ativan to help with air-hunger (high-risk med). Pt seen by INOCENCIA Montes with Dr. Foster - ABG and BiPAP ordered. [facility] records reviewed - no mention of pulmonary nodule w/u but chart did include diagnosis of COPD. Still awaiting records from [facility]. Hypernatremia - resolved. Decrease rate of fluid to 50 ml/hr. PO intake improving. Could potentially restart Bumex in the next day or two. 06/20/17 Regarding elevated lactate with possible sepsis, will obtain blood cultures 2. Start Rocephin 1 g IV daily. Check urinalysis and chest x-ray now. We'll give a fluid bolus if chest x-ray does not show fluid overload. Repeat lactate. Monitor vitals closely. Continue steroids, breathing treatments, supplemental oxygen, BiPAP as needed. 06/21/17 WBC improved to 13.7 and lactate trended down. BC & sputum pending. Continue Rocephin, day #2. UA was neg for UTI. CXR yesterday revealed mild edema. Steroid dose reduced per pulmonology. Appreciate their expertise. Constipation - start Senna Plus and MiraLAX. Ativan PRN air hunger - received dose last evening. (high risk med). Continue PT /OT. Records received from [facility] and reviewed: Pt actually has b/l pulmonary nodules from records in [address]. She had CT scan of her chest which was suspicious for neoplasm, and then had PET scan which did not meet criteria for cancer. She saw Dr. Pereyra at that time. 06/22/17 Will continue with Rocephin for pulmonary coverage - Day #3. Solu-Medrol decreased by Pulm to 80mg IV q 8 hour. Continue neb treatments. No wheezing, but lungs still very tight sounding. Wean O2 as able. Currently maintaining saturations 92-95% on 2L. Lasix 20mg IV x1 to help decrease edema. Encourage continuation of activities to help strength. 06/23/17 Will continue with Rocephin for pulmonary coverage - Day #4. Continue Solu-Medrol and neb treatments. No wheezing, but lungs still very tight sounding. Wean O2 as able. Currently maintaining saturations 92-95% on 2L. Encourage deep breathing. Diamox 500mg given x1 this am as CO2 increase post Lasix yesterday. Will repeat dose this evening. Ambulate QID in room halls to help strength. Discussed with patient about possible Skilled care post discharge to help improve strength prior to going home. 06/24/17 Continue Rocephin, day #5. Discussed treatment with Marzena Bettencourt APRN -- change IV steroids to q12 today then plan on transitioning to prednisone in am if she's still doing well. Likely will need ambulatory oximetry prior to discharge. Has been declining PT/OT services. She's not particularly interested in SNF. Labs remain stable. 06/25/17 Increased dyspnea/wheezing today. Dr. Foster ordered repeat CXR now, and CBC, BMP, BNP in am. Continue Rocephin, day #6. Cont Duoneb q4h; cont prednisone per Dr. Foster. BC and sputum cx neg.
[2017-06-25] MEDS: PredniSONE 10 MG TABLET PO SCH (17:24)
[2017-06-26] MEDS: HYDROCODONE/APAP 7.5 MG/325 MG TABLET PO PRN ×2 (02:48→09:18)
[2017-06-26] MEDS: SALINE FLUSH 10ml SYRINGE IVF PRN ×2 (02:50→09:34)
[2017-06-26] MEDS: ALBUTEROL/IPRATROPIUM 2.5mg-0.5mg/3ml NEB AEROSOL SCH ×3 (02:55→11:29)
[2017-06-26] MEDS: SALINE 0.65% NASAL SPRAY 44 ML BOTTLE EA NOSTRIL SCH ×3 (05:48→12:50)
[2017-06-26 07:45] VITALS: BP 142/96
[2017-06-26 07:46] VITALS: PULSE 70; TEMP 96.4
[2017-06-26] MEDS: BUDESONIDE INH.SOLN 0.5mg/2ml NEB AEROSOL SCH (08:05)
--- NOTE | 2017-06-26 09:13 | XRay Report ---
INDICATION: shortness of breath, copd PROCEDURE: CHEST 2-VIEWS UPRIGHT (PA & LAT) Encounter: Initial COMPARISON: June 22, 2017 FINDINGS: Stable right upper lobe pulmonary nodule. No consolidative pneumonia, pleural effusion or pneumothorax. Heart size and mediastinal contours are stable. Pulmonary vascularity appears normal. Impression: 1. No acute cardiopulmonary disease. 2. Suspicious right upper lobe pulmonary nodule. .
[2017-06-26] MEDS: PredniSONE 10 MG TABLET PO SCH (09:16)
[2017-06-26] MEDS: HYDROXYCHLOROQUINE 200 MG PO SCH (09:16)
[2017-06-26] MEDS: CLOTRIMAZOLE 10 MG TROCHE MM SCH ×2 (09:17→12:49)
[2017-06-26] MEDS: POLYETHYL GLYCOL 3350 17gm PACKET PO SCH (09:17)
[2017-06-26] MEDS: GUAIFENESIN/D-METHORPHAN 600mg/30mg TABLET PO SCH (09:17)
[2017-06-26] MEDS: SENNA + DOCUSATE TABLET PO SCH (09:18)
[2017-06-26] MEDS: CEFTRIAXONE 1 G in NS 50 ML IV SCH (09:18)
[2017-06-26] MEDS ORDERED: NS FLUSH BAG 500ml IV PRN (09:35)
--- NOTE | 2017-06-26 11:31 | Pulmonology Progress Note ---
Subjective Principal diagnosis: SOB Interval history: Pt sitting up in bed, wheezy and rhonchi on R, + cough with minimal sputum, + SOB still. Exam Vital signs: Temperature 96.4 F L 06/26/17 07:45 Pulse Rate 70 06/26/17 07:45 Respiratory Rate 28 H 06/26/17 08:05 Blood Pressure 142/96 H 06/26/17 07:44 Pulse Oximetry 96 06/26/17 08:05 Inpatient Medications: Generic Name Dose Route Start Last Admin Trade Name Freq PRN Reason Stop Dose Admin Hydrocodone Bitart/Acetaminophen 1 tab 06/18/17 18:19 06/26/17 09:18 [place] 7.5/325 PO 1 tab Q4H PRN Administration Pain Albuterol/Ipratropium 3 ml 06/18/17 18:19 Duoneb AEROSOL Q4HR PRN Shortness of air Albuterol/Ipratropium 3 ml 06/19/17 16:00 06/26/17 08:05 Duoneb AEROSOL 3 ml Q4HR JAMAR Administration Bisacodyl 10 mg 06/18/17 18:19 Dulcolax RECTALLY DAILY PRN Constipation Budesonide 0.5 mg 06/18/17 19:00 06/26/17 08:05 Pulmicort Inhalation AEROSOL 0.5 mg RTBID JAMAR Administration Bumetanide 1 mg 06/21/17 07:36 Bumex 1 Mg Tab PO DAILY PRN Clotrimazole 10 mg 06/18/17 21:27 06/26/17 09:17 Mycelex Benito MM 10 mg 5XD JAMAR Administration Guaifenesin/Dextromethorphan 1 tab 06/18/17 21:00 06/26/17 09:17 Mucinex Dm PO 1 tab BID JAMAR Administration Hydroxychloroquine Sulfate 400 mg 06/21/17 08:00 06/26/17 09:16 Plaquenil PO 400 mg WB JAMAR Administration Ceftriaxone Sodium 1 g/ Sodium 50 mls @ 100 mls/hr 06/20/17 09:30 06/26/17 09 :18 Chloride IV 100 mls/hr Q24H JAMAR Administration Lorazepam 0.5 mg 06/18/17 18:19 06/20/17 19:53 Ativan Inj IVP 0.5 mg Q4H PRN Administration Anxiety/Air hunger/Agitation Magnesium Hydroxide 30 ml 02/27/18 18:19 Mom PO DAILY PRN Constipation Menthol 1 lozenge 06/18/17 18:19 Ricola Sf MM PRN PRN Cough Morphine Sulfate 2 mg 06/18/17 18:19 06/23/17 18:13 Morphine Sulfate Inj IVP 2 mg Q2HR PRN Administration Pain Nicotine 1 removal 06/21/17 09:00 Nicotine Patch Removal TD DAILY PRN Nicotine 14 mg 06/20/17 09:00 Nicoderm TD DAILY PRN Cessation/Smoking/Tobacco use Ondansetron HCl 4 mg 06/18/17 18:19 Zofran IVP Q6H PRN Nausea Pharmacy Profile Note 5 ml 06/18/17 21:26 Lidocaine/Maalox/Benadryl Soln PO Q4H PRN Mouth pain Polyethylene Glycol 17 gm 06/21/17 16:00 06/26/17 09:17 Miralax PO Not Given DAILY JAMAR Prednisone 30 mg 06/25/17 17:30 06/26/17 09:16 Deltasone 10 Mg PO 30 mg BIDWM JAMAR Administration Promethazine HCl/Codeine 5 ml 06/18/17 18:19 06/18/17 21:03 Phenergan + Codeine PO 5 ml Q6HR PRN Administration Cough Senna/Docusate Sodium 1 tab 06/21/17 21:00 06/26/17 09:18 Senna Plus Tablet PO 1 tab BID JAMAR Administration Sodium Chloride 10 - 80 ml 06/18/17 15:18 06/26/17 09:34 Iv Flush IVF 10 ml PRN PRN Administration Flushing Sodium Chloride 2 spray 06/18/17 21:28 06/26/17 09:17 Deep Sea Nasal Moisturizing [place] EA NOSTRIL 2 spray QID JAMAR Administration Sodium Chloride 500 ml 06/26/17 09:35 06/26/17 09:37 Normal Saline IV 500 ml PRN PRN Administration Discontinued Medications Generic Name Dose Route Start Last Admin Trade Name Freq PRN Reason Stop Dose Admin Acetazolamide 500 mg 06/23/17 09:20 06/23/17 10:51 Diamox PO 06/23/17 09:21 500 mg O ONE Administration Acetazolamide 500 mg 06/23/17 16:00 06/23/17 15:50 Diamox PO 06/23/17 16:01 500 mg O ONE Administration Albuterol/Ipratropium 3 ml 06/18/17 15:02 06/18/17 15:19 Duoneb AEROSOL 06/18/17 15:03 3 ml O ONE Administration Albuterol/Ipratropium 3 ml 06/18/17 17:26 06/18/17 17:36 Duoneb AEROSOL 06/18/17 17:27 3 ml O ONE Administration Albuterol/Ipratropium 3 ml 06/18/17 19:00 06/19/17 11:55 Duoneb AEROSOL 3 ml RTQID JAMAR Administration Furosemide 20 mg 06/22/17 12:37 06/22/17 13:03 Lasix IVP 06/22/17 12:38 20 mg ONCE ONE Administration Hydroxychloroquine Sulfate 200 mg 06/18/17 18:19 06/19/17 09:19 Plaquenil PO Not Given BIDWM JAMAR Hydroxychloroquine Sulfate 400 mg 06/20/17 09:00 Plaquenil PO DAILY JAMAR Hydroxychloroquine Sulfate 400 mg 06/19/17 09:19 06/20/17 08:25 Plaquenil PO 400 mg DAILY JAMAR Administration Sodium Chloride 1,000 mls @ 50 mls/hr 06/18/17 18:19 06/21/17 22:56 1/2 Normal Saline IV Not Given .Q20H [facility] Levalbuterol HCl 1.25 mg 06/18/17 16:06 06/18/17 16:29 Xopenex 1.25mg/3ml AEROSOL 06/18/17 16:07 1.25 mg O ONE Administration Lorazepam 1 mg 06/18/17 18:02 06/18/17 18:09 Ativan Inj IVP 06/18/17 18:03 1 mg O ONE Administration Methylprednisolone Sodium Succinate 125 mg 06/18/17 15:30 06/18/17 15:35 Solu-Medrol IVP 06/18/17 15:31 125 mg O ONE Administration Methylprednisolone Sodium Succinate 125 mg 06/18/17 21:00 06/21/17 09:24 Solu-Medrol IVP 125 mg Q6HR JAMAR Administration Methylprednisolone Sodium Succinate 80 mg 06/21/17 15:00 06/22/17 14:57 Solu-Medrol IVP 80 mg Q6HR JAMAR Administration Methylprednisolone Sodium Succinate 40 mg 06/22/17 21:00 06/24/17 09:16 Solu-Medrol IVP 40 mg Q6HR JAMAR Administration Methylprednisolone Sodium Succinate 40 mg 06/24/17 21:00 06/25/17 09:14 Solu-Medrol IVP 40 mg Q12HR JAMAR Administration Nicotine 14 mg 06/19/17 20:55 Nicoderm TD DAILY PRN Cessation/Smoking/Tobacco use Potassium Chloride 10 meq 06/22/17 12:50 06/22/17 13:03 Micro-K 10 Meq Capsule PO 06/22/17 12:51 10 meq O ONE Administration - Constitutional mild distress, average body habitus, cooperative - Routine HEENT Exam Head: Present: normocephalic, atraumatic Eye: Present: EOMI ENT: Present: mucous membranes moist - Routine Neck Exam Present: supple, full ROM - Routine Respiratory Exam Present: decreased breath sounds, prolonged expiratory phase, rhonchi, wheezes - Routine Cardiovascular Exam Present: RRR, S1, S2, no murmur - Routine Abdominal Exam Present: soft, normoactive bowel sounds - Routine Extremities Exam Present: no edema, non tender, full ROM. Absent: cyanosis, clubbing - Routine Back/Spine/Pelvis Exam Back/Spine: Present: full ROM - Routine Skin Exam Present: intact, dry - Routine Neurological Exam Present: alert, oriented X3, CN II-XII intact - Routine Psychiatric Exam Present: normal affect, normal thought process Results - Laboratory Findings Laboratory: Laboratory Results - last 48 hr 06/25/17 06/26/17 06/26/17 04:14 04:16 04:16 WBC 13.0 H RBC 4.87 Hgb 13.4 Hct 42.9 MCV 88.1 MCH 27.5 MCHC 31.2 RDW Std Deviation 45.8 Plt Count 334 MPV 9.1 L Neutrophils % (Manual) 78.0 H Lymphocytes % (Manual) 12.0 L Monocytes % (Manual) 10.0 H Neutrophils # (Manual) 10.1 H Lymphocytes # (Manual) 1.6 Monocytes # (Manual) 1.3 H Anisocytosis 1+ Ovalocytes 1+ Cameron Cells 1+ RBC Morph Comment Abnormal Turbidity < 20 < 20 Sodium 141 140 Potassium 4.6 4.8 Chloride 104 104 Carbon Dioxide 26 27 Anion Gap 11 9 BUN 33.0 H 38.0 H Creatinine 0.8 0.9 GFR Calculation 70 61 BUN/Creatinine Ratio 41 H 42 H Glucose 114 H 106 Calculated Osmolality 279 278 Calcium 8.4 8.4 Icterus Index < 2 < 2 NT-Pro-B Natriuret Pep 257 H Specimen Hemolysis < 15 < 15 - Diagnostic Findings Chest x-ray: image reviewed (CXR Clear of acute abnormalities, stable RUL nodule ) Assessment and Plan - Assessment and Plan Acute Hypoxic Respiratory Failure COPD exacerbation RUL nodule - stable per pt report, awaiting documents from Berna MANN - on hydroxychloroquine Plan: Pt currently on O2 at 2L per [place], gary, not using bipap at [facility]. Still wheezy and Rhonchi noted on R, tends to have increased SOB after eating. Will have ST see to assess for dysphagia. Cont on BT's with A/A q4 and pulmicort BID. On cefepime day 7, could stop. - Time Spent With Patient Total time spent is greater than 50% in coordination of care (as documented) at patient's floor/unit and/or counseling patient: less than 15 minutes
[2017-06-26 11:34] VITALS: O2SAT 94
--- NOTE | 2017-06-26 13:32 | Progress Note ---
- Date 06/26/17 Subjective: F/U: COPD exacerbation, Acute hypoxic respiratory insufficiency Feels like she is improving. Still with cough, congestion but dose feel is making improvements. at bedside and says this is the best she has been breathing in about a year. No hurting with breathing. Eating well. No nausea or ab pain. Stools stable. Strength making improvements. Feels strong enough and ready to go home. Objective Vital signs: Temperature 96.4 F L 06/26/17 07:45 Pulse Rate 70 06/26/17 07:45 Respiratory Rate 22 06/26/17 11:25 Blood Pressure 142/96 H 06/26/17 07:44 Pulse Oximetry 94 06/26/17 11:25 Height/Weight/BMI: Height 1.6 m Weight 62 kg Body Mass Index 23.9 - Constitutional Present: well nourished, well developed, average body habitus, cooperative - Routine HEENT Exam Head: Present: normocephalic, atraumatic Eye: Present: EOMI, PERRL ENT: Present: mucous membranes moist - Routine Respiratory Exam Present: decreased breath sounds, rhonchi, distant breath sounds, diminished air movement. Absent: respiratory distress - Routine Cardiovascular Exam Present: RRR, no murmur - Routine Abdominal Exam Present: soft, normoactive bowel sounds, non distended, non tender. Absent: guarding - Routine Extremities Exam Present: no edema, pulses intact. Absent: cyanosis, clubbing - Routine Musculoskeletal Exam Musculoskeletal: Present: no clubbing or cyanosis - Routine Skin Exam Present: dry, warm - Routine Neurological Exam Present: alert, oriented X3, CN II-XII intact, moving all extremities, vision grossly intact, hearing grossly intact, normal speech. Absent: motor deficit, altered mental status - Routine Psychiatric Exam Present: normal affect, normal thought process, cooperative Results - Labs CBC & Chem 7: 06/26/17 04:16 06/26/17 04:16 Microbiology Results: Microbiology 06/20/17 09:47 Peripheral/Iv Start Blood Culture - Final No Growth After 5 Days 06/20/17 09:48 Peripheral/Iv Start Blood Culture - Final No Growth After 5 Days 06/23/17 08:34 Sputum, Expectorated Gram Stain - Final 06/23/17 08:34 Sputum, Expectorated Sputum Culture - Final No Growth After 2 Days 06/22/17 15:18 Sputum, Expectorated Gram Stain - Final 06/22/17 15:18 Sputum, Expectorated Sputum Culture - Final Assessment and Plan (1) COPD exacerbation Current visit: Yes Status: Acute Assessment and Plan: IMPRESSION COPD exacerbation Acute hypoxic respiratory insufficiency Elevated lactate 2.6 on 06/20/2017, possible sepsis Hypernatremia (POA) - resolved Thrush (POA) - Mycelex started 06/18 Anorexia Anxiety secondary to hypoxia Constipation Lung nodule, chronic Mild diastolic dysfunction, preserved EF Mild pulmonary HTN RA GERD Chronic back pain Tobacco dependency Pulmonary debility PLAN Repeat CXR without any acute changes. Maintaining saturations on RA. Strength improving-feels strong enough to do well at home. Discussed with Pulm - medically stable for discharge. Rocephin completed during hospitalization - do not need to continue antibiotics. RT to educate on Combivent Respimat use - use 2 puffs QID. Will continue with Prednisone in slow taper. Pulm recommends 30mg BID with meals, gradually tapering by 10mg every third day. F/U with Dr Baeza in 1 week for reevaluation. F/U with Dr Foster in 2-3 weeks for pulmonary evaluation. Stressed the importance of not smoking. See orders for details. Case discussed with CM, pulm, and pt's . Time spent with care and discharge greater than 30 minutes. DVT Prophylaxis: SCD's Resuscitation Status: Do Not Resuscitate - Physician Narrative Physician: Candido Love MD Narrative: Date: 06/26/17 Time: 1317 Hospital Course Summary Disclaimer: The visit summary below is not to be considered part of the above Progress Note. Hospital Course: 06/18/17 Admit, OBS status, under the hospitalist service. Check respiratory panel. Significant smoking hx; quit approx 9 days ago. Suspect COPD and will treat wheezing as exacerbation of COPD with DuoNeb, Pulmicort, Solu-Medrol 125 Q6h, and Ativan/MS PRN air hunger. Consider consulting Dr. Foster. Hypernatremia - 1/2 NS. Recheck in am. Hold Bumex for now. Request records from [facility] regarding w/u for lung nodule, which pt/spouse ( Simba) report is chronic. Check B12 d/t reddened tongue. Do suspect thrush - start Mycelex and have Swizzle prn stomatitis pain. Consult PT/OT - RN reports gait is unsteady. Thrush - Mycelex. Code status: DNR. 06/19/17 Still with wheezing, decreased air movement, and O2 requirement. Will need to continue high-dose IV steroids and breathing treatments. Change status to inpatient as it's expected to take more than 2 nights to improve her respiratory symptoms. Continue IV Ativan to help with air-hunger (high-risk med). Pt seen by INOCENCIA Montes with Dr. Foster - ABG and BiPAP ordered. [facility] records reviewed - no mention of pulmonary nodule w/u but chart did include diagnosis of COPD. Still awaiting records from [facility]. Hypernatremia - resolved. Decrease rate of fluid to 50 ml/hr. PO intake improving. Could potentially restart Bumex in the next day or two. 06/20/17 Regarding elevated lactate with possible sepsis, will obtain blood cultures 2. Start Rocephin 1 g IV daily. Check urinalysis and chest x-ray now. We'll give a fluid bolus if chest x-ray does not show fluid overload. Repeat lactate. Monitor vitals closely. Continue steroids, breathing treatments, supplemental oxygen, BiPAP as needed. 06/21/17 WBC improved to 13.7 and lactate trended down. BC & sputum pending. Continue Rocephin, day #2. UA was neg for UTI. CXR yesterday revealed mild edema. Steroid dose reduced per pulmonology. Appreciate their expertise. Constipation - start Senna Plus and MiraLAX. Ativan PRN air hunger - received dose last evening. (high risk med). Continue PT /OT. Records received from [facility] and reviewed: Pt actually has b/l pulmonary nodules from records in [address]. [address] scan of her chest which was suspicious for neoplasm, and then had PET scan which did not meet criteria for cancer. She saw Dr. Pereyra at that time. 06/22/17 Will continue with Rocephin for pulmonary coverage - Day #3. Solu-Medrol decreased by Pulm to 80mg IV q 8 hour. Continue neb treatments. No wheezing, but lungs still very tight sounding. Wean O2 as able. Currently maintaining saturations 92-95% on 2L. Lasix 20mg IV x1 to help decrease edema. Encourage continuation of activities to help strength. 06/23/17 Will continue with Rocephin for pulmonary coverage - Day #4. Continue Solu-Medrol and neb treatments. No wheezing, but lungs still very tight sounding. Wean O2 as able. Currently maintaining saturations 92-95% on 2L. Encourage deep breathing. Diamox 500mg given x1 this am as CO2 increase post Lasix yesterday. Will repeat dose this evening. Ambulate QID in room halls to help strength. Discussed with patient about possible Skilled care post discharge to help improve strength prior to going home. 06/24/17 Continue Rocephin, day #5. Discussed treatment with Marzena Bettencourt APRN -- change IV steroids to q12 today then plan on transitioning to prednisone in am if she's still doing well. Has been declining PT/OT services. She's not particularly interested in SNF. Labs remain stable. 06/25/17 Increased dyspnea/wheezing today. Dr. Foster ordered repeat CXR now, and CBC, BMP, BNP in am. Continue Rocephin, day #6. Cont Duoneb q4h; cont prednisone per Dr. Foster. BC and sputum cx neg. 06/26/17 Repeat CXR without any acute changes. Maintaining saturations on RA. Strength improving-feels strong enough to do well at home. Discussed with Pulm - medically stable for discharge. Rocephin completed during hospitalization - do not need to continue antibiotics. RT to educate on Combivent Respimat use - use 2 puffs QID. Will continue with Prednisone in slow taper. Pulm recommends 30mg BID with meals, gradually tapering by 10mg every third day. F/U with Dr Baeza in 1 week for reevaluation. F/U with Dr Foster in 2-3 weeks for pulmonary evaluation. Stressed the importance of not smoking. See orders for details.
[2017-06-26] MEDS ORDERED: Ipatropium/Albuterol 20/100mcg INHALER (4gm) ORAL INH SCH (14:00)
[2017-06-26 14:56] VITALS: RESP 16
--- NOTE | 2017-06-26 18:12 | Discharge Summary ---
Discharge Information Date of admission: 06/19/17 14:43 Anticipated date of discharge: 06/26/17 Attending Physician: Candido Love MD Primary care physician: Moe Baeza II, MD Consults: Dr Foster - Pulm PT/OT - Discharge Diagnosis (1) COPD exacerbation Status: Acute Discharge diagnosis COPD exacerbation Associated conditions and complications Acute hypoxic respiratory insufficiency Elevated lactate 2.6 on 06/20/2017, possible sepsis Hypernatremia (POA) - resolved Thrush (POA) - Mycelex started 06/18 Anorexia Anxiety secondary to hypoxia Constipation Lung nodule, chronic Mild diastolic dysfunction, preserved EF Mild pulmonary HTN RA GERD Chronic back pain Tobacco dependency Pulmonary debility - Laboratory Labs: Admit Lab 06/18/17 15:27 WBC 9.0 Hgb 13.9 Hct 45.2 MCV 88.8 Plt Count 313 Neut % (Auto) 70.0 H Lymph % (Auto) 20.8 L Toole % (Auto) 7.9 Eos % (Auto) 1.0 Baso % (Auto) 0.2 Admit Lab 06/18/17 15:27 Sodium 147 H Potassium 4.0 Chloride 106 Carbon Dioxide 26 Anion Gap 15 BUN 20.0 H Creatinine 0.7 GFR Calculation 81 BUN/Creatinine Ratio 29 H Glucose 106 Calculated Osmolality 285 H Calcium 8.8 Total Bilirubin 0.30 AST 17 ALT 28 Alkaline Phosphatase 94 Troponin I < 0.012 B-Natriuretic Peptide 697 H Total Protein 7.6 Albumin 4.5 Globulin 3.1 Albumin/Globulin Ratio 1.5 B12 Level 06/19/17 05:29 Vitamin B12 666 06/26/17 04:16 06/26/17 04:16 - Microbiology Microbiology 06/20/17 09:47 Peripheral/Iv Start Blood Culture - Final No Growth After 5 Days 06/20/17 09:48 Peripheral/Iv Start Blood Culture - Final No Growth After 5 Days 06/23/17 08:34 Sputum, Expectorated Gram Stain - Final 06/23/17 08:34 Sputum, Expectorated Sputum Culture - Final No Growth After 2 Days 06/22/17 15:18 Sputum, Expectorated Gram Stain - Final 06/22/17 15:18 Sputum, Expectorated Sputum Culture - Final - Radiology Radiology: Date of Exam: 06/18/17 PROCEDURE: CHEST 2-VIEWS UPRIGHT (PA & LAT) FINDINGS: There is an irregular 2.1 cm right upper lobe pulmonary nodule projecting between the second and third. Ribs lungs are hyperinflated with flattening of the hemidiaphragms and changes of emphysema. No consolidative pneumonia, pleural effusion or pneumothorax. Heart size and mediastinal contours are within normal limits. Pulmonary vascularity is normal. Prior mid thoracic vertebroplasty. Impression: 1. Suspicious right upper lobe pulmonary nodule raising concern for primary lung malignancy. Recommend chest CT for further evaluation. 2. Emphysema without focal pneumonia. Date of Exam: 06/20/17 PROCEDURE: CHEST 2-VIEWS UPRIGHT (PA & LAT) FINDINGS: Right upper lobe pulmonary nodule is again noted. There is slight increase in pulmonary vascular prominence compared to the prior study with a few Kurt B lines present. No consolidative pneumonia. No pleural effusion or pneumothorax. Heart size and mediastinal contours are stable. Impression: Developing mild pulmonary vascular congestion or edema. Date of Exam: 06/22/17 PROCEDURE: XR chest 1V Findings: Right upper lobe pulmonary nodule is again noted. Lungs are otherwise clear. No pleural effusion or pneumothorax. Heart size and mediastinal contours are stable. Pulmonary vascularity is normal currently. Impression: Resolved pulmonary edema. No focal pneumonia. Date of Exam: 06/26/17 PROCEDURE: CHEST 2-VIEWS UPRIGHT (PA & LAT) FINDINGS: Stable right upper lobe pulmonary nodule. No consolidative pneumonia, pleural effusion or pneumothorax. Heart size and mediastinal contours are stable. Pulmonary vascularity appears normal. Impression: 1. No acute cardiopulmonary disease. 2. Suspicious right upper lobe pulmonary nodule. History of Present Illness HPI: Abida Montelongo is a 77 y/o woman who has been struggling with SOA and cough x2 weeks, worse at night. She's had fever and chills, mild sweats. She's had headache and "eye floaters". She notes chronic thoracic back pain but not other myalgias per se. She has had some alternating diarrhea/constipation. Her feet and legs, arms and hands have been swollen, which she thinks is from RA -- this worsens when she works her joints too hard. She occ feels dizzy, and she's been weak recently. She hasn't had much of an appetite - mostly b/c she's short of breath. She presented to [facility] on 06/18/17. Room air sats were 87% on room air and she was placed on oxygen. Labs showed hypernatremia (147) but otherwise were stable. Trop was neg. EKG: sinus. CXR showed COPD changes and a right upper lobe nodule which the patient and spouse, Simba, state is chronic and was worked up 4-5 years ago at [facility]. Despite multiple breathing treatments, solu -medrol, and ativan, she continued to wheeze and have conversational dyspnea. She was ultimately admitted to obs status under the hospitalist service. For complete details of the H&P refer to that document. Objective Vital signs: Temperature 96.4 F L 06/26/17 07:45 Pulse Rate 70 06/26/17 07:45 Respiratory Rate 16 06/26/17 14:55 Blood Pressure 142/96 H 06/26/17 07:44 Pulse Oximetry 94 06/26/17 14:42 Height/Weight/BMI: Height 1.6 m Weight 62 kg Body Mass Index 23.9 Hospital Course This is a general summary of the patient's hospital course. For more details refer to the complete medical record. Hospital course: 06/18/17 Admit, OBS status, under the hospitalist service. Check respiratory panel. Significant smoking hx; quit approx 9 days ago. Suspect COPD and will treat wheezing as exacerbation of COPD with DuoNeb, Pulmicort, Solu-Medrol 125 Q6h, and Ativan/MS PRN air hunger. Consider consulting Dr. Foster. Hypernatremia - 1/2 NS. Recheck in am. Hold Bumex for now. Request records from [facility] regarding w/u for lung nodule, which pt/spouse ( Simba) report is chronic. Check B12 d/t reddened tongue. Do suspect thrush - start Mycelex and have Swizzle prn stomatitis pain. Consult PT/OT - RN reports gait is unsteady. Thrush - Mycelex. Code status: DNR. 06/19/17 Still with wheezing, decreased air movement, and O2 requirement. Will need to continue high-dose IV steroids and breathing treatments. Change status to inpatient as it's expected to take more than 2 nights to improve her respiratory symptoms. Continue IV Ativan to help with air-hunger (high-risk med). Pt seen by INOCENCIA Montes with Dr. Foster - G and BiPAP ordered. [facility] records reviewed - no mention of pulmonary nodule w/u but chart did include diagnosis of COPD. Still awaiting records from [facility]. Hypernatremia - resolved. Decrease rate of fluid to 50 ml/hr. PO intake improving. Could potentially restart Bumex in the next day or two. 06/20/17 Regarding elevated lactate with possible sepsis, will obtain blood cultures 2. Start Rocephin 1 g IV daily. Check urinalysis and chest x-ray now. We'll give a fluid bolus if chest x-ray does not show fluid overload. Repeat lactate. Monitor vitals closely. Continue steroids, breathing treatments, supplemental oxygen, BiPAP as needed. 06/21/17 WBC improved to 13.7 and lactate trended down. BC & sputum pending. Continue Rocephin, day #2. UA was neg for UTI. CXR yesterday revealed mild edema. Steroid dose reduced per pulmonology. Appreciate their expertise. Constipation - start Senna Plus and MiraLAX. Ativan PRN air hunger - received dose last evening. (high risk med). Continue PT /OT. Records received from [facility] and reviewed: Pt actually has b/l pulmonary nodules from records in [address]. [address] scan of her chest which was suspicious for neoplasm, and then had PET scan which did not meet criteria for cancer. She saw Dr. Pereyra at that time. 06/22/17 Will continue with Rocephin for pulmonary coverage - Day #3. Solu-Medrol decreased by Pulm to 80mg IV q 8 hour. Continue neb treatments. No wheezing, but lungs still very tight sounding. Wean O2 as able. Currently maintaining saturations 92-95% on 2L. Lasix 20mg IV x1 to help decrease edema. Encourage continuation of activities to help strength. 06/23/17 Will continue with Rocephin for pulmonary coverage - Day #4. Continue Solu-Medrol and neb treatments. No wheezing, but lungs still very tight sounding. Wean O2 as able. Currently maintaining saturations 92-95% on 2L. Encourage deep breathing. Diamox 500mg given x1 this am as CO2 increase post Lasix yesterday. Will repeat dose this evening. Ambulate QID in room halls to help strength. Discussed with patient about possible Skilled care post discharge to help improve strength prior to going home. 06/24/17 Continue Rocephin, day #5. Discussed treatment with Marzena Bettencourt APRN -- change IV steroids to q12 today then plan on transitioning to prednisone in am if she's still doing well. Has been declining PT/OT services. She's not particularly interested in SNF. Labs remain stable. 06/25/17 Increased dyspnea/wheezing today. Dr. Foster ordered repeat CXR now, and CBC, BMP, BNP in am. Continue Rocephin, day #6. Cont Duoneb q4h; cont prednisone per Dr. Foster. BC and sputum cx neg. 06/26/17 Repeat CXR without any acute changes. Maintaining saturations on RA. Strength improving-feels strong enough to do well at home. Discussed with Pulm - medically stable for discharge. Rocephin completed during hospitalization - do not need to continue antibiotics. RT to educate on Combivent Respimat use - use 2 puffs QID. Will continue with Prednisone in slow taper. Pulm recommends 30mg BID with meals, gradually tapering by 10mg every third day. F/U with Dr Baeza in 1 week for reevaluation. F/U with Dr Foster in 2-3 weeks for pulmonary evaluation. Stressed the importance of not smoking. See orders for details. Time spent with patient: discharge greater than 30 minutes Resuscitation Status: Do Not Resuscitate Discharge Plan - Discharge Disposition Discharge Date: 06/26/17 Disposition: 01 Discharged Home, Self-Care *Condition: Stable Reason For Visit (Visit label in EMR): hypoxia, lung mass - Discharge Medications *Discharge Medications: New Guaifenesin/Dm [Mucinex Dm] 1 tab PO BID tab LORazepam [Ativan] 0.5 mg PO Q4HR PRN #30 tab PRN Reason: Anxiety/Air Hunger/Agitation Menthol Cough Drops [Ricola Sf] 1 lozenge MM PRN PRN lozenge PRN Reason: Cough PredniSONE [Deltasone 10 mg] 30 mg PO BIDWM #70 tab Promethazine + Cod Liq [Phenergan + Codeine] 5 ml PO Q6HR PRN #150 ml PRN Reason: Cough Senna + Docusate [Senna Plus Tablet] 1 tab PO BID PRN tab PRN Reason: Constipation Sodium Chloride [[place]] 2 spray EA NOSTRIL QID PRN spray PRN Reason: Nasal Congestion Ipatropium/Albuterol [Combivent Respimat Inhaler] 2 puff INH QID #1 inhaler PEG 3350 17gm PACKET [Miralax] 17 gm PO DAILY PRN packet PRN Reason: Constipation Continue Hydrocodone/APAP 7.5/325 [[place] 7.5/325] 1 tab PO Q4H PRN PRN Reason: Pain Bumetanide Tab [Bumex 1 mg Tab] 1 mg PO DAILY PRN PRN Reason: Prn Orders Hydroxychloroquine Sulfate [Plaquenil] 200 mg PO BIDWM - Discharge Packet/Instructions *Diet: Low sodium *Activity: Increase as able *Pain Management/Treatment: Continue home pain medications *Wound Care: N/A Additional Instructions: Taper Prednisone slowly. Start with 30mg (3 tablets) twice a day with meals for 3 days, then decrease by 10mg (1 tablet) every 3 days. Expample: 4th day you would take 3 tables with breakfast and 2 tablets with evening meal, then on 7th day you would take 2 tablets with breakfast and 2 tablets with evening meal. Continue to taper until prescrition complete. Use Combivent inhaler 2 puffs 4 times a day to help breathing. *Expected Signs/Symptoms: Improvement of strength and functional status. *Notify Physician if: Temp >100.4. Increasing difficulty breatihng. *During Business Hours Contact: Dr Baeza *After Business Hours Contact: Call [facility] and have Dr Baeza or his covering provider contacted. *Pending Lab/Results: No Pending Lab - Referrals/Follow Up *Referrals/Follow Up: Dennis Foster MD [Physician] - 07/22/17 11:10 am (Hospital follow up for COPD exacerbation with acute respiratory failure. Establish pulm care. ) Moe Baeza II, MD [Primary Care Provider] - 07/03/17 10:15 am (Hospital follow up for acute respiratory failure/COPD exacerbation. ) - Patient Handouts Patient Handouts: Hypoxia (GEN) - Dismissal Complete Discharge Instructions are:: Complete Physician Narrative - Narrative Physician: Candido Love MD Attestation Narrative: Date: 06/26/17 Time: 1808 I have independently interviewed and examined patient prior to discharge. See my progress note for details. Medically stable for discharge to home.
== END 2017-06-26 15:20 | disposition home or self-care (01) | DRG 190 ==
LOC: ED 14:56 → MED 14:56 → SUATTDRO 06-19 14:43
PROVIDERS: ADMIT Hospitalist; ATTEND Hospitalist